=== PATIENT | female | born 1960 | race Hispanic/Latino ===

== ENCOUNTER 2017-08-21 10:45 | Inpatient (IN) | payer MEDICAID ==
[2017-08-21 10:46] VITALS: BMI 37.1
[2017-08-21] MEDS ORDERED: Sodium Chloride 0.9% 1,000 ML IV STA ×2 (12:12→17:52)
[2017-08-21 13:05] LABS: BASO % 0.3 % (0.0-2.0); EOS # 0.1 K/uL (0.0-0.7); EOS % 0.7 % (0.0-4.0); HEMATOCRIT 39.3 % (34.0-47.0); LYMPH # 2.6 K/uL (1.0-4.3); LYMPH % 31.3 % (20.0-40.0); MEAN CELL VOLUME 86.8 fl (81.0-99.0); MEAN CORPUSCULAR HEMOGLOBIN 28.9 pg (27.0-31.0); MEAN CORPUSCULAR HGB CONC 33.3 g/dL (33.0-37.0); MEAN PLATELET VOLUME 5.8 fl (7.2-11.7); MONO # 0.6 K/uL (0.0-0.8); MONO % 7.3 % (0.0-10.0); NEUT # 5.1 K/uL (1.8-7.0); NEUT % 60.4 % (50.0-75.0); NRBC % 0.1 % (0.0-0.0); RED CELL DISTRIBUTION WIDTH 13.8 % (11.5-14.5); WHITE BLOOD COUNT 8.4 K/uL (4.8-10.8)
[2017-08-21 13:16] LABS: ALB/GLOB RATIO 1.3 (1.0-2.1); ALKALINE PHOSPHATASE 71 U/L (38-126); ALT/SGPT 41 U/L (9-52); AST/SGOT 18 U/L (14-36); BILIRUBIN,TOTAL 0.5 mg/dl (0.2-1.3); BLOOD UREA NITROGEN 9 mg/dl (7-17); CALCIUM 8.8 mg/dL (8.4-10.2); CARBON DIOXIDE 28 mmol/L (22-30); CHLORIDE 108 mmol/L (98-107); GFR AFRICAN-AMERICAN > 60; GLUCOSE,RANDOM 137 mg/dL (65-105); LIPASE 85 U/L (23-300); SODIUM 142 mmol/l (132-148); TOTAL PROTEIN 6.7 G/DL (6.3-8.2)
[2017-08-21] MEDS ORDERED: Morphine 4 MG/ML VIAL IVP ONE ×2 (14:08→18:47)
[2017-08-21] MEDS ORDERED: Morphine 4 MG/ML VIAL ONE ×2 (14:11→19:10)
--- NOTE | 2017-08-21 14:11 | US ---
HISTORY: RUQ pain. hx of maurisio COMPARISON: None available TECHNIQUE: Sonographic evaluation of the right upper quadrant of the abdomen. FINDINGS: LIVER: Measures measures approximately 16.8 cm and appears unremarkable. No focal hepatic mass identified. The main portal vein appears patent with normal directional flow. No mass. No intrahepatic bile duct dilatation. GALLBLADDER: Cholecystectomy. COMMON BILE DUCT: Measures 8 mm. PANCREAS: Not well-visualized. RIGHT KIDNEY: Measures 11.7 x 6.3 x 4.6 cm. No obstructing calculus or hydronephrosis identified. AORTA: Limited visualization appears grossly unremarkable. IVC: Limited visualization appears grossly unremarkable. OTHER FINDINGS: None . IMPRESSION: Mildly dilated common bile duct in the setting of cholecystectomy.
[2017-08-21] MEDS ORDERED: Iohexol 240 (50 ml) PO ONE (14:18)
[2017-08-21] MEDS ORDERED: Iohexol 240 (50 ml) ONE (14:26)
--- NOTE | 2017-08-21 14:55 | ED PDOC ---
HPI: Abdomen Time Seen by Provider: 08/21/17 11:08 Chief Complaint (Nursing): Abdominal Pain Chief Complaint (Provider): Abdominal Pain History Per: Patient History/Exam Limitations: no limitations Onset/Duration Of Symptoms: Days (x3 days) Additional Complaint(s): 57 y/o female with a past medical history of gastroparesis and diabete presents to the Ed complaining of right upper quadrant pain x 3 days. She has nausea and vomiting associated with pain. Pain is constant and exacerbated by deep breaths and eating. Patient also complained of diarrhea since this morning. No medications were taken for pain. Past Medical History Reviewed: Historical Data, Nursing Documentation, Vital Signs Vital Signs: Last Vital Signs Temp 98 F 08/21/17 11:00 Pulse 66 08/21/17 18:17 Resp 18 08/21/17 11:00 BP 135/78 08/21/17 11:00 Pulse Ox 98 08/21/17 18:17 - Medical History PMH: Diabetes, Gastritis, Gall Bladder Disease (Post cholecystectomy ), HTN, Hypercholesterolemia, TIA Denies: Chronic Kidney Disease - Surgical History Surgical History: Appendectomy, Cholecystectomy, Endoscopy, Tonsillectomy - Family History Family History: States: Unknown Family Hx - Social History Current smoker - smoking cessation education provided: No Alcohol: None Drugs: Denies - Immunization History Hx Tetanus Toxoid Vaccination: No Hx Influenza Vaccination: No Hx Pneumococcal Vaccination: No - Home Medications Home Medications: Ambulatory Orders Medication Instructions Recorded Aspirin [Aspirin EC] 81 mg PO DAILY 03/19/15 Insulin Detemir [Levemir] 50 unit SC HS 03/19/15 Isosorbide Mononitrate ER [Imdur 30 mg PO DAILY 09/05/16 ER] [place]-3 Fatty Acids [Fish Oil] 500 mg PO DAILY 09/05/16 Carvedilol [Coreg] 3.125 mg PO Q12 tab 09/06/16 Insulin Lispro [Humalog (Insulin 3 unit SQ ACTID #1 cartridge 09/06/16 Lispro)] Losartan [Cozaar] 25 mg PO DAILY tab 09/06/16 ALPRAZolam [Xanax] 1 mg PO BID PRN 08/21/17 Metoclopramide [Reglan] 10 mg PO BID PRN 08/21/17 - Allergies Allergies/Adverse Reactions: Allergies Allergy/AdvReac Type Severity Reaction Status Date / Time Penicillins Allergy RASH Verified 08/30/16 10:02 Review of Systems ROS Statement: Except As Marked, All Systems Reviewed And Found Negative (As per HPI, othewise negative) Constitutional: Negative for: Fever Gastrointestinal: Positive for: Nausea, Vomiting (non bloody), Abdominal Pain ( Right upper quadrant pain) Genitourinary Female: Negative for: Other (bloody stool) Physical Exam - Reviewed Nursing Documentation Reviewed: Yes Vital Signs Reviewed: Yes - Physical Exam Appears: Positive for: Non-toxic, Uncomfortable Head Exam: Positive for: ATRAUMATIC, NORMOCEPHALIC Skin: Positive for: Normal Color, Warm, Dry Eye Exam: Positive for: Normal appearance, EOMI, PERRL Neck: Positive for: Normal, Painless ROM, Supple Cardiovascular/Chest: Positive for: Regular Rate, Rhythm. Negative for: Murmur Respiratory: Positive for: Normal Breath Sounds. Negative for: Respiratory Distress Gastrointestinal/Abdominal: Positive for: Tenderness (right upper quadrant tenderness) Back: Positive for: Normal Inspection. Negative for: L CVA Tenderness, R CVA Tenderness, Vertebral Tenderness Extremity: Positive for: Normal ROM. Negative for: Pedal Edema, Deformity Neurologic/Psych: Positive for: Alert, Oriented (x3) - Laboratory Results Result Diagrams: 08/21/17 12:53 08/21/17 12:53 - ECG ECG Rhythm: Positive for: Sinus Rhythm (Normal). Negative for: ST/T Changes Rate: 66 O2 Sat by Pulse Oximetry: 98 (RA) Pulse Ox Interpretation: Normal Medical Decision Making Medical Decision Making: Time: 12:11 Initial Impression: Abdominal pain Differential diagnosis: Acute pancreatitis, cholelithiasis, small bowel obstruction, exacerbation of gastroparesis Plan: EKG Hydromorphone 0.5mg IVP Sodium chloride 1L IV Reglan 10mg sodium chloride 0.9% 50ml IVPB Ultrasound abdomen Time: 12:53 CMP Lipase Troponin I CBC w/ diff Time: 14:08 Iohexol 50ml PO Ondansetron 4mg IV Morphine 4mg IVP Time: 14:09 Abdomen US FINDINGS: LIVER: Measures measures approximately 16.8 cm and appears unremarkable. No focal hepatic mass identified. The main portal vein appears patent with normal directional flow. No mass. No intrahepatic bile duct dilatation. GALLBLADDER: Cholecystectomy. COMMON BILE DUCT: Measures 8 mm. PANCREAS: Not well-visualized. RIGHT KIDNEY: Measures 11.7 x 6.3 x 4.6 cm. No obstructing calculus or hydronephrosis identified. AORTA: Limited visualization appears grossly unremarkable. IVC: Limited visualization appears grossly unremarkable. OTHER FINDINGS: None . IMPRESSION: Mildly dilated common bile duct in the setting of cholecystectomy. Time: 17:43 Abdomen/Pelvis CT FINDINGS: LOWER THORAX: No visible consolidation, pleural effusion, or pneumothorax. Small hiatal hernia. LIVER: Unremarkable. GALLBLADDER AND BILE DUCTS: Cholecystectomy. Question presence of calculi within the cystic duct remnant ( coronal image 56). PANCREAS: Unremarkable. SPLEEN: Unremarkable. ADRENALS: Unremarkable. KIDNEYS AND URETERS: The kidneys enhance symmetrically. No hydronephrosis or obstructing renal calculus. BLADDER: Under distended urinary bladder limits evaluation. REPRODUCTIVE: Heterogeneous lobulated uterus consistent with fibroids. APPENDIX: The appendix appears within normal limits of caliber. No secondary signs of acute appendicitis. BOWEL: The stomach is nondistended. The bowel loops appear within normal limits of caliber without evidence of intestinal obstruction. PERITONEUM: No significant free fluid. No definite free air. LYMPH NODES: Sub cm bilateral inguinal lymph nodes. No bulky lymphadenopathy identified. VASCULATURE: No aortic aneurysm. BONES: Degenerative changes. OTHER FINDINGS: Small fat containing umbilical hernia. IMPRESSION: Question presence of calculi within a cystic duct remnant. [address] Kay who is covering for Dr Meyer will the patient in ED and will discuss with attending Dr Meyer. Scribe Attestation: Documented by Socorro May acting as a scribe for Meg Arevalo MD. Scribe Attestation: All medical record entries made by the Scribe were at my direction and personally dictated by me. I have reviewed the chart and agree that the record accurately reflects my personal performance of the history, physical exam, medical decision making, and the department course for this patient. I have also personally directed, reviewed, and agree with the discharge instructions and disposition. Disposition - Clinical Impression Clinical Impression: Abdominal pain - Disposition Forms: [employer] (Belarusian)
[2017-08-21] MEDS ORDERED: Iohexol 300 100 ML IJ ONE (16:46)
[2017-08-21] MEDS ORDERED: Sodium Chloride 0.9% 50 ML IV ONE (16:46)
--- NOTE | 2017-08-21 17:44 | CT ---
PROCEDURE: CT Abdomen and Pelvis with oral and IV contrast. HISTORY: ruq pain hx of maurisio COMPARISON: Limited abdominal ultrasound performed 08/21/17 TECHNIQUE: Contiguous axial images of the abdomen and pelvis. Oral and IV contrast was administered. Coronal and Sagittal reformats generated and reviewed. Contrast dose: 95 mL Omnipaque 300 Radiation dose: Total exam DLP = 1139.42 mGy-cm. This CT exam was performed using one or more of the following dose reduction techniques: Automated exposure control, adjustment of the mA and/or kV according to patient size, and/or use of iterative reconstruction technique. FINDINGS: LOWER THORAX: No visible consolidation, pleural effusion, or pneumothorax. Small hiatal hernia. LIVER: Unremarkable. GALLBLADDER AND BILE DUCTS: Cholecystectomy. Question presence of calculi within the cystic duct remnant (coronal image 56). PANCREAS: Unremarkable. SPLEEN: Unremarkable. ADRENALS: Unremarkable. KIDNEYS AND URETERS: The kidneys enhance symmetrically. No hydronephrosis or obstructing renal calculus. BLADDER: Under distended urinary bladder limits evaluation. REPRODUCTIVE: Heterogeneous lobulated uterus consistent with fibroids. APPENDIX: The appendix appears within normal limits of caliber. No secondary signs of acute appendicitis. BOWEL: The stomach is nondistended. The bowel loops appear within normal limits of caliber without evidence of intestinal obstruction. PERITONEUM: No significant free fluid. No definite free air. LYMPH NODES: Sub cm bilateral inguinal lymph nodes. No bulky lymphadenopathy identified. VASCULATURE: No aortic aneurysm. BONES: Degenerative changes. OTHER FINDINGS: Small fat containing umbilical hernia. IMPRESSION: Question presence of calculi within a cystic duct remnant.
[2017-08-21] MEDS ORDERED: Ciprofloxacin 400mg/200ml D5W 400 MG/200 ML BAG IVPB STA (19:17)
[2017-08-21] MEDS ORDERED: metroNIDAZOLE 500mg/100ml NS 100 ML IVPB STA (19:17)
[2017-08-21] MEDS ORDERED: Ciprofloxacin 400mg/200ml D5W 400 MG/200 ML BAG IVPB ONE (19:29)
[2017-08-21] MEDS ORDERED: metroNIDAZOLE 500mg/100ml NS 100 ML IVPB ONE (19:29)
--- NOTE | 2017-08-21 19:29 | CP.PCM.CON ---
History of Present Illness - History of Present Illness History of Present Illness: General Surgery Consult Note for Dr. Meyer Reason for Consult: abdominal pain, possible cystic duct remnant stone 57 F with PMH of gastroparesis, DM, HTN, s/p cholecystectomy (1998) presents to [facility] ED with complaint of right upper quadrant pain. Patient states that she has had pain for about 4 weeks. She states that it has gotten progressively worse. She has history of gastroparesis and it felt similar so she attributed the pain to that. Patient admits to associated nausea/vomting. She rates pain as severe. She describes the pain as constant and sharp located in RUQ and epigastric region. She states it is exacerbated by deep breaths and eating but denies alleviating factors. CT scan and abdominla US was done in ED which showed possible cystic duct remnant and dilated CBD, respectively. Admits to diarrhea. Denies fever/chills, cp, sob, palpitations, constipation, incontinence. PMH: DM, Gastritis, s/p cholecystectomy, gastroparesis, HTN, Hypercholesterolemia, TIA Meds: As per EMR Allergy: NKDA PSH : Appendectomy, Cholecystectomy, Endoscopy, Tonsillectomy FH: unknown Social: denies tobacco/EtOH/illicit drug use Review of Systems - Review of Systems All systems: reviewed and no additional remarkable complaints except (abdominal pain, nausea/vomiting, diarrhea) Past Patient History - Past Medical History & Family History Past Medical History?: Yes - Past Social History Alcohol: None Drugs: Denies - CARDIAC Hx Hypercholesterolemia: Yes Hx Hypertension: Yes - PULMONARY Hx Respiratory Disorders: No - NEUROLOGICAL Hx Transient Ischemic Attacks (TIA): Yes - HEENT Hx HEENT Problems: No - RENAL Hx Chronic Kidney Disease: No - ENDOCRINE/METABOLIC Hx Endocrine Disorders: Yes Hx Diabetes Mellitus Type 2: Yes - HEMATOLOGICAL/ONCOLOGICAL Hx Blood Disorders: No - INTEGUMENTARY Hx Dermatological Problems: No - MUSCULOSKELETAL/RHEUMATOLOGICAL Hx Musculoskeletal Disorders: No Hx Falls: No - GASTROINTESTINAL Hx Gall Bladder Disease: Yes (Post cholecystectomy ) Hx Gastritis: Yes - GENITOURINARY/GYNECOLOGICAL Hx Genitourinary Disorders: No - PSYCHIATRIC Hx Psychophysiologic Disorder: No Hx Substance Use: No - SURGICAL HISTORY Hx Appendectomy: Yes Hx Cholecystectomy: Yes Hx Tonsillectomy: Yes - ANESTHESIA Hx Anesthesia: Yes Hx Anesthesia Reactions: No Hx Malignant Hyperthermia: No Meds Allergies/Adverse Reactions: Allergies Allergy/AdvReac Type Severity Reaction Status Date / Time Penicillins Allergy RASH Verified 08/30/16 10:02 - Medications Medications: Current Medications Ciprofloxacin (Cipro 400mg/200ml Dsw) 400 mg in 200 mls @ 200 mls/hr IVPB STAT STA PRN Reason: Protocol Stop: 08/21/17 20:16 Metronidazole (Flagyl 500mg/100ml Ns) 100 mls @ 100 mls/hr IVPB STAT STA PRN Reason: Protocol Stop: 08/21/17 20:16 Physical Exam - Constitutional Appears: No Acute Distress, Other (anxious) - Head Exam Head Exam: ATRAUMATIC, NORMOCEPHALIC - Eye Exam Eye Exam: EOMI, Normal appearance, PERRL. absent: Scleral icterus - ENT Exam ENT Exam: Mucous Membranes Moist - Neck Exam Neck exam: Positive for: Full Rom - Respiratory Exam Respiratory Exam: NORMAL BREATHING PATTERN - Cardiovascular Exam Cardiovascular Exam: REGULAR RHYTHM - GI/Abdominal Exam GI & Abdominal Exam: Distended, Normal Bowel Sounds, Soft, Tenderness (RUQ/ epigastrium). absent: Firm, Guarding, Hernia, Pulsatile Mass, Rebound, Rigid - Extremities Exam Extremities exam: Positive for: normal capillary refill, pedal pulses present - Back Exam Back exam: absent: CVA tenderness (L), CVA tenderness (R) - Neurological Exam Neurological exam: Alert, CN II-XII Intact, Oriented x3 - Psychiatric Exam Psychiatric exam: Anxious - Skin Skin Exam: Dry, Intact, Normal Color, Warm Results - Vital Signs Recent Vital Signs: Last Vital Signs Temp 98 F 08/21/17 11:00 Pulse 66 08/21/17 18:24 Resp 18 08/21/17 11:00 BP 135/78 08/21/17 11:00 Pulse Ox 98 08/21/17 18:24 - Labs Result Diagrams: 08/21/17 12:53 08/21/17 12:53 Labs: Laboratory Results - last 24 hr 08/21/17 08/21/17 12:53 12:53 WBC 8.4 RBC 4.53 Hgb 13.1 Hct 39.3 MCV 86.8 MCH 28.9 MCHC 33.3 RDW 13.8 Plt Count 231 MPV 5.8 L Neut % (Auto) 60.4 Lymph % (Auto) 31.3 [place] % (Auto) 7.3 Eos % (Auto) 0.7 Baso % (Auto) 0.3 Neut # 5.1 Lymph # 2.6 [place] # 0.6 Eos # 0.1 Baso # 0.0 Sodium 142 Potassium 4.0 Chloride 108 H Carbon Dioxide 28 Anion Gap 10 BUN 9 Creatinine 0.5 L Est GFR ( Amer) > 60 Est GFR (Non-Af Amer) > 60 Random Glucose 137 H Calcium 8.8 Total Bilirubin 0.5 AST 18 ALT 41 Alkaline Phosphatase 71 Troponin I < 0.0120 Total Protein 6.7 Albumin 3.8 Globulin 2.9 Albumin/Globulin Ratio 1.3 Lipase 85 Assessment & Plan - Assessment and Plan (Free Text) Plan: 57 F with abdominal pain and imaging findings of dilated CBD and cystic duct remnant stone -NPO -IVC fluids -Analgesics/Anti-emetics -F/u GI recommendations -Will Discuss with Dr. Mitch Hightower PGY1
[2017-08-21] MEDS ORDERED: HYDROmorphone 0.5 mg/0.5 ml ISec IVP PRN (23:13)
[2017-08-21] MEDS ORDERED: Insulin Detemir 100 Units/ml Inj SC SCH (23:45)
[2017-08-22] MEDS: HYDROmorphone 0.5 mg/0.5 ml ISec IVP PRN ×2 (00:06→08:09)
[2017-08-22] MEDS ORDERED: Dextrose 5%/0.9% NS 1,000 ML IV SCH ×2 (00:30→08:55)
[2017-08-22 06:48] LABS: PARTIAL THROMBOPLASTIN TIME 30.8 Seconds (25.6-37.1)
[2017-08-22 07:06] LABS: BASO % 0.3 % (0.0-2.0); EOS # 0.1 K/uL (0.0-0.7); HEMATOCRIT 36.2 % (34.0-47.0); LYMPH # 2.7 K/uL (1.0-4.3); LYMPH % 37.4 % (20.0-40.0); MEAN CELL VOLUME 87.2 fl (81.0-99.0); MEAN CORPUSCULAR HEMOGLOBIN 28.8 pg (27.0-31.0); MEAN CORPUSCULAR HGB CONC 33.1 g/dL (33.0-37.0); MEAN PLATELET VOLUME 6.1 fl (7.2-11.7); MONO # 0.5 K/uL (0.0-0.8); MONO % 7.6 % (0.0-10.0); NEUT # 3.9 K/uL (1.8-7.0); NEUT % 53.7 % (50.0-75.0); NRBC % 0.2 % (0.0-0.0); RED CELL DISTRIBUTION WIDTH 13.7 % (11.5-14.5); WHITE BLOOD COUNT 7.2 K/uL (4.8-10.8)
[2017-08-22 07:27] LABS: ALB/GLOB RATIO 1.2 (1.0-2.1); ALKALINE PHOSPHATASE 54 U/L (38-126); ALT/SGPT 32 U/L (9-52); AST/SGOT 20 U/L (14-36); BILIRUBIN,TOTAL 0.2 mg/dl (0.2-1.3); BLOOD UREA NITROGEN 7 mg/dl (7-17); CALCIUM 8.3 mg/dL (8.4-10.2); CARBON DIOXIDE 29 mmol/L (22-30); CHLORIDE 110 mmol/L (98-107); GFR AFRICAN-AMERICAN > 60; GLUCOSE,RANDOM 118 mg/dL (65-105); POTASSIUM 3.7 MMOL/L (3.6-5.0); SODIUM 142 mmol/l (132-148); TOTAL PROTEIN 5.8 G/DL (6.3-8.2)
[2017-08-22] MEDS: Insulin Lispro (humaLOG) 100 Units/ml Inj SC SCH ×2 (07:30→11:30)
--- NOTE | 2017-08-22 08:02 | CARD ---
APPROVED REPORT EKG Measurement Heart [id number] <Conclusion> Normal sinus rhythm Normal ECG
[2017-08-22] MEDS ORDERED: Gadodiamide 287 MG/ML VIAL (15ML) IV ONE (08:26)
[2017-08-22] MEDS ORDERED: Sodium Chloride 0.9% 50 ML IV ONE (08:26)
--- NOTE | 2017-08-22 10:48 | CP.PCM.PN ---
Subjective - Date & Time of Evaluation Date of Evaluation: 08/22/17 Time of Evaluation: 09:45 - Subjective Subjective: General Surgery Dr. Meyer Pt down at MRI for MRCP. Will evaluate later today. Pt S&E @bedside. NAEO. Pt c/o constant RUQ pain, N/V. Pt reports worse RUQ pain w/ deep inhalation. Pt also reports occasional, cramping pain in epigastric region that resolves spontaneously. Pt is NPO. Objective - Vital Signs/Intake and Output Vital Signs (last 24 hours): Temp Pulse Resp BP Pulse Ox 97.7 F 61 20 101/62 98 08/22/17 09:08 08/22/17 09:08 08/22/17 09:08 08/22/17 09:08 08/22/17 09:08 - Medications Medications: Current Medications Alprazolam (Xanax) 1 mg PO BID PRN PRN Reason: Anxiety Aspirin (Ecotrin) 81 mg PO DAILY [facility] Carvedilol (Coreg) 3.125 mg PO Q12 [facility] Enoxaparin Sodium (Lovenox) 40 mg SC DAILY [facility] PRN Reason: Protocol Stop: 08/24/17 23:00 Hydromorphone HCl (Dilaudid) 1 mg IVP Q4 PRN PRN Reason: Pain, severe (8-10) Last Admin: 08/22/17 08:09 Dose: 1 mg Hydromorphone HCl (Dilaudid) 0.5 mg IVP Q4 PRN PRN Reason: Pain, moderate (4-7) Dextrose/Sodium Chloride (Dextrose 5%/0.9% Ns 1000 Ml) 1,000 mls @ 120 mls/hr IV .[id number] [facility] Insulin Detemir (Levemir) 30 units SC HS [facility] Last Admin: 08/22/17 00:27 Dose: 30 u Insulin Human Lispro (Humalog) 0 units SC ACHS [facility] PRN Reason: Protocol Last Admin: 08/22/17 07:30 Dose: Not Given Isosorbide Mononitrate (Imdur Er) 30 mg PO DAILY [facility] Ketorolac Tromethamine (Toradol) 15 mg IVP Q6 PRN PRN Reason: Pain, Mild (1-3) Losartan Potassium (Cozaar) 25 mg PO DAILY [facility] Ondansetron HCl (Zofran Inj) 4 mg IVP Q4 PRN PRN Reason: Nausea/Vomiting Last Admin: 08/22/17 08:52 Dose: 4 mg - Labs Labs: 08/22/17 05:20 08/22/17 05:20 PT 12.6 Seconds (9.8-13.1) 08/22/17 05:20 INR 1.1 (0.9-1.2) 08/22/17 05:20 APTT 30.8 Seconds (25.6-37.1) 08/22/17 05:20 - Constitutional Appears: Non-toxic, No Acute Distress - Head Exam Head Exam: NORMAL INSPECTION - Eye Exam Eye Exam: Normal appearance - ENT Exam ENT Exam: Mucous Membranes Moist - Respiratory Exam Respiratory Exam: NORMAL BREATHING PATTERN. absent: Accessory Muscle Use, Respiratory Distress - Cardiovascular Exam Cardiovascular Exam: absent: Bradycardia, Tachycardia - GI/Abdominal Exam GI & Abdominal Exam: Soft, Tenderness (TTP RUQ). absent: Distended, Firm, Guarding, Rebound - Extremities Exam Extremities Exam: Normal Inspection - Neurological Exam Neurological Exam: Alert, Awake, Oriented x3 - Psychiatric Exam Psychiatric exam: Normal Affect, Normal Mood - Skin Skin Exam: Dry, Intact, Normal Color, Warm Assessment and Plan - Assessment and Plan (Free Text) Assessment: 57 y/o F w/ RUQ pain - MRCP inconclusive for cystic duct stone - spoke to GI, not recommending ERCP at this time - cont pain management - consider pleuritic chest pain and possible CTA - f/u GI recs - cont medical management - no surgical intervention at this time Pt discussed w/ Dr. Mitch Calix DO PGY2
[2017-08-22] MEDS ORDERED: Ciprofloxacin 400mg/200ml D5W 400 MG/200 ML BAG IVPB SCH (11:45)
--- NOTE | 2017-08-22 13:08 | MRI ---
MRI abdomen without/with IV contrast MRCP Indication: Retained stone Technique: Multiplanar, multi sequence magnetic resonance images of the abdomen were obtained without and with the administration of intravenous gadolinium using a multi phase abdomen protocol. Rotating maximum intensity projection images of the biliary system were generated. A total of 1167 images submitted for review Comparison: Limited abdominal ultrasound performed 08/21/17, CT abdomen pelvis with contrast performed 08/21/17 Findings: Cholecystectomy. Again question presence of calculi within a cystic duct remnant. There is no intrahepatic biliary ductal dilatation. The common bile duct appears dilated measuring approximately 10 mm without focal filling defect evident. The pancreatic duct appears within normal limits of caliber. No filling defects are seen in the common bile duct or pancreatic duct. The liver, spleen, pancreas, and adrenal glands appear unremarkable. The kidneys enhance symmetrically. No obstructing calculus or hydronephrosis identified. No no bulky adenopathy identified. Limited views of the inferior thorax appear unremarkable. Small hiatal hernia. Impression: Dilated common bile duct in the setting of cholecystectomy. Again question presence of calculi within a cystic duct remnant. No filling defects evident within the common bile duct.
[2017-08-22] MEDS: metroNIDAZOLE 500mg/100ml NS 100 ML IVPB SCH ×2 (13:19→13:30)
[2017-08-22 16:33] VITALS: BP 101/59; PULSE 58; RESP 18; TEMP 97; O2SAT 95
[2017-08-22] MEDS ORDERED: Enoxaparin 40 mg Syringe SC SCH (17:00)
--- NOTE | 2017-08-22 19:49 | CP.PCM.CON ---
History of Present Illness - History of Present Illness History of Present Illness: 57 yo female with recent lap/maurisio admitted with RUQ pain radiating to back associated with nausea and vomiting.. No fever, chills, or diarrhea. Review of Systems - Constitutional Constitutional: absent: Chills - EENT Eyes: absent: Blurred Vision Ears: absent: Decreased Hearing Nose/Mouth/Throat: absent: Epistaxis - Cardiovascular Cardiovascular: absent: Chest Pain - Respiratory Respiratory: absent: Dyspnea - Gastrointestinal Gastrointestinal: As Per HPI - Genitourinary Genitourinary: absent: Change in Urinary Stream Past Patient History - Past Medical History & Family History Past Medical History?: Yes - Past Social History Alcohol: None Drugs: Denies - CARDIAC Hx Hypercholesterolemia: Yes Hx Hypertension: Yes - PULMONARY Hx Respiratory Disorders: No - NEUROLOGICAL Hx Transient Ischemic Attacks (TIA): Yes - HEENT Hx HEENT Problems: No - RENAL Hx Chronic Kidney Disease: No - ENDOCRINE/METABOLIC Hx Endocrine Disorders: Yes Hx Diabetes Mellitus Type 2: Yes - HEMATOLOGICAL/ONCOLOGICAL Hx Blood Disorders: No - INTEGUMENTARY Hx Dermatological Problems: No - MUSCULOSKELETAL/RHEUMATOLOGICAL Hx Musculoskeletal Disorders: No Hx Falls: No - GASTROINTESTINAL Hx Gall Bladder Disease: Yes (Post cholecystectomy ) Hx Gastritis: Yes - GENITOURINARY/GYNECOLOGICAL Hx Genitourinary Disorders: No - PSYCHIATRIC Hx Psychophysiologic Disorder: No Hx Substance Use: No - SURGICAL HISTORY Hx Appendectomy: Yes Hx Cholecystectomy: Yes Hx Tonsillectomy: Yes - ANESTHESIA Hx Anesthesia: Yes Hx Anesthesia Reactions: No Hx Malignant Hyperthermia: No Meds Allergies/Adverse Reactions: Allergies Allergy/AdvReac Type Severity Reaction Status Date / Time Penicillins Allergy RASH Verified 08/30/16 10:02 Physical Exam - Constitutional Appears: Well - Head Exam Head Exam: ATRAUMATIC - Eye Exam Eye Exam: Normal appearance Pupil Exam: NORMAL ACCOMODATION - ENT Exam ENT Exam: Mucous Membranes Moist - Neck Exam Neck exam: Positive for: Normal Inspection - Respiratory Exam Respiratory Exam: Clear to Auscultation Bilateral - Cardiovascular Exam Cardiovascular Exam: REGULAR RHYTHM, +S1, +S2 - GI/Abdominal Exam GI & Abdominal Exam: Normal Bowel Sounds, Soft, Tenderness Additional comments: RUQ tenderness, no guarding or rebound Results - Vital Signs Recent Vital Signs: Last Vital Signs Temp 97 F L 08/22/17 16:31 Pulse 58 L 11/29/17 16:31 Resp 18 08/22/17 16:31 BP 101/59 L 08/22/17 16:31 Pulse Ox 95 08/22/17 16:31 - Labs Result Diagrams: 08/22/17 05:20 08/22/17 05:20 Labs: Laboratory Results - last 24 hr 08/21/17 08/21/17 08/22/17 11:14 17:33 00:17 WBC RBC Hgb Hct MCV MCH MCHC RDW Plt Count MPV Neut % (Auto) Lymph % (Auto) Harris % (Auto) Eos % (Auto) Baso % (Auto) Neut # Lymph # Harris # Eos # Baso # PT INR APTT Sodium Potassium Chloride Carbon Dioxide Anion Gap BUN Creatinine Est GFR ( Amer) Est GFR (Non-Af Amer) POC Glucose (mg/dL) 185 H 135 H 163 H Random Glucose Hemoglobin A1c Calcium Total Bilirubin AST ALT Alkaline Phosphatase Total Protein Albumin Globulin Albumin/Globulin Ratio TSH 3rd Generation 08/22/17 08/22/17 08/22/17 05:20 05:20 05:20 WBC 7.2 RBC 4.15 Hgb 12.0 Hct 36.2 MCV 87.2 MCH 28.8 MCHC 33.1 RDW 13.7 Plt Count 207 MPV 6.1 L Neut % (Auto) 53.7 Lymph % (Auto) 37.4 Harris % (Auto) 7.6 Eos % (Auto) 1.0 Baso % (Auto) 0.3 Neut # 3.9 Lymph # 2.7 Harris # 0.5 Eos # 0.1 Baso # 0.0 PT 12.6 INR 1.1 APTT 30.8 Sodium 142 Potassium 3.7 Chloride 110 H Carbon Dioxide 29 Anion Gap 7 L BUN 7 Creatinine 0.6 L Est GFR ( Amer) > 60 Est GFR (Non-Af Amer) > 60 POC Glucose (mg/dL) Random Glucose 118 H Hemoglobin A1c Calcium 8.3 L Total Bilirubin 0.2 AST 20 ALT 32 Alkaline Phosphatase 54 Total Protein 5.8 L Albumin 3.2 L Globulin 2.6 Albumin/Globulin Ratio 1.2 TSH 3rd Generation 0.60 08/22/17 08/22/17 08/22/17 05:20 06:29 11:31 WBC RBC Hgb Hct MCV MCH MCHC RDW Plt Count MPV Neut % (Auto) Lymph % (Auto) Harris % (Auto) Eos % (Auto) Baso % (Auto) Neut # Lymph # Harris # Eos # Baso # PT INR APTT Sodium Potassium Chloride Carbon Dioxide Anion Gap BUN Creatinine Est GFR ( Amer) Est GFR (Non-Af Amer) POC Glucose (mg/dL) 115 H 120 H Random Glucose Hemoglobin A1c 8.8 H D Calcium Total Bilirubin AST ALT Alkaline Phosphatase Total Protein Albumin Globulin Albumin/Globulin Ratio TSH 3rd Generation 08/22/17 15:58 WBC RBC Hgb Hct MCV MCH MCHC RDW Plt Count MPV Neut % (Auto) Lymph % (Auto) Harris % (Auto) Eos % (Auto) Baso % (Auto) Neut # Lymph # Harris # Eos # Baso # PT INR APTT Sodium Potassium Chloride Carbon Dioxide Anion Gap BUN Creatinine Est GFR ( Amer) Est GFR (Non-Af Amer) POC Glucose (mg/dL) 101 Random Glucose Hemoglobin A1c Calcium Total Bilirubin AST ALT Alkaline Phosphatase Total Protein Albumin Globulin Albumin/Globulin Ratio [facility] 3rd Generation - Imaging and Cardiology MRI - abdomen Status: Report reviewed by me CT scan - abdomen Status: Report reviewed by me Assessment & Plan (1) Abdominal pain Assessment and Plan: Bile duct distention normal post surgery. No evidence of CBD stones or pathology. Suggestion on imaging of possible cystic duct stone. Should be managed by surgery. Status: Acute
[2017-08-22] MEDS ORDERED: Insulin Detemir 100 Units/ml Inj SC SCH (22:00)
--- NOTE | 2017-08-23 00:43 | CP.PCM.HP ---
Past Patient History - Past Medical History & Family History Past Medical History?: Yes - Past Social History Alcohol: None Drugs: Denies - CARDIAC Hx Hypercholesterolemia: Yes Hx Hypertension: Yes - PULMONARY Hx Respiratory Disorders: No - NEUROLOGICAL Hx Transient Ischemic Attacks (TIA): Yes - HEENT Hx HEENT Problems: No - RENAL Hx Chronic Kidney Disease: No - ENDOCRINE/METABOLIC Hx Endocrine Disorders: Yes Hx Diabetes Mellitus Type 2: Yes - HEMATOLOGICAL/ONCOLOGICAL Hx Blood Disorders: No - INTEGUMENTARY Hx Dermatological Problems: No - MUSCULOSKELETAL/RHEUMATOLOGICAL Hx Musculoskeletal Disorders: No Hx Falls: No - GASTROINTESTINAL Hx Gall Bladder Disease: Yes (Post cholecystectomy ) Hx Gastritis: Yes - GENITOURINARY/GYNECOLOGICAL Hx Genitourinary Disorders: No - PSYCHIATRIC Hx Psychophysiologic Disorder: No Hx Substance Use: No - SURGICAL HISTORY Hx Appendectomy: Yes Hx Cholecystectomy: Yes Hx Tonsillectomy: Yes - ANESTHESIA Hx Anesthesia: Yes Hx Anesthesia Reactions: No Hx Malignant Hyperthermia: No Meds Allergies/Adverse Reactions: Allergies Allergy/AdvReac Type Severity Reaction Status Date / Time Penicillins Allergy RASH Verified 08/30/16 10:02 Results - Vital Signs Recent Vital Signs: Last Vital Signs Temp 97 F L 08/22/17 16:31 Pulse 58 L 08/22/17 16:31 Resp 18 08/22/17 16:31 BP 101/59 L 08/22/17 16:31 Pulse Ox 95 08/22/17 16:31 - Labs Result Diagrams: 08/22/17 05:20 08/22/17 05:20 Labs: Laboratory Results - last 24 hr 08/22/17 08/22/17 08/22/17 05:20 05:20 05:20 WBC 7.2 RBC 4.15 Hgb 12.0 Hct 36.2 MCV 87.2 MCH 28.8 MCHC 33.1 RDW 13.7 Plt Count 207 MPV 6.1 L Neut % (Auto) 53.7 Lymph % (Auto) 37.4 Towns % (Auto) 7.6 Eos % (Auto) 1.0 Baso % (Auto) 0.3 Neut # 3.9 Lymph # 2.7 Towns # 0.5 Eos # 0.1 Baso # 0.0 PT 12.6 INR 1.1 APTT 30.8 Sodium 142 Potassium 3.7 Chloride 110 H Carbon Dioxide 29 Anion Gap 7 L BUN 7 Creatinine 0.6 L Est GFR ( Amer) > 60 Est GFR (Non-Af Amer) > 60 POC Glucose (mg/dL) Random Glucose 118 H Hemoglobin A1c Calcium 8.3 L Total Bilirubin 0.2 AST 20 ALT 32 Alkaline Phosphatase 54 Total Protein 5.8 L Albumin 3.2 L Globulin 2.6 Albumin/Globulin Ratio 1.2 TSH 3rd Generation 0.60 08/22/17 08/22/17 08/22/17 05:20 06:29 11:31 WBC RBC Hgb Hct MCV MCH MCHC RDW Plt Count MPV Neut % (Auto) Lymph % (Auto) Towns % (Auto) Eos % (Auto) Baso % (Auto) Neut # Lymph # Towns # Eos # Baso # PT INR APTT Sodium Potassium Chloride Carbon Dioxide Anion Gap BUN Creatinine Est GFR ( Amer) Est GFR (Non-Af Amer) POC Glucose (mg/dL) 115 H 120 H Random Glucose Hemoglobin A1c 8.8 H D Calcium Total Bilirubin AST ALT Alkaline Phosphatase Total Protein Albumin Globulin Albumin/Globulin Ratio TSH 3rd Generation 08/22/17 15:58 WBC RBC Hgb Hct MCV MCH MCHC RDW Plt Count MPV Neut % (Auto) Lymph % (Auto) Towns % (Auto) Eos % (Auto) Baso % (Auto) Neut # Lymph # Towns # Eos # Baso # PT INR APTT Sodium Potassium Chloride Carbon Dioxide Anion Gap BUN Creatinine Est GFR ( Amer) Est GFR (Non-Af Amer) POC Glucose (mg/dL) 101 Random Glucose Hemoglobin A1c Calcium Total Bilirubin AST ALT Alkaline Phosphatase Total Protein Albumin Globulin Albumin/Globulin Ratio TSH 3rd Generation
[2017-08-23] MEDS ORDERED: Enoxaparin 40 mg Syringe SC SCH (09:00)
== END 2017-08-22 17:08 | disposition left against medical advice (07) | DRG 813 ==
LOC: H.ER 10:45 → H.ERHOLD 19:15 → H.MEDSURG1 21:21
PROVIDERS: ADMIT Internal Medicine; ATTEND Internal Medicine
DX: R10.11 Right upper quadrant pain (principal); E11.43 Type 2 diabetes mellitus with diabetic autonomic (poly)neuropathy; K31.84 Gastroparesis; K83.8 Other specified diseases of biliary tract; I10 Essential (primary) hypertension; E78.00 Pure hypercholesterolemia, unspecified; Z86.73 Personal history of transient ischemic attack (TIA), and cerebral infarction without residual deficits; Z79.82 Long term (current) use of aspirin; Z79.899 Other long term (current) drug therapy; Z90.49 Acquired absence of other specified parts of digestive tract

== ENCOUNTER 2018-05-30 15:39 | Observation (INO) | payer MEDICAID ==
[2018-05-30 15:39] VITALS: BMI 37.1
--- NOTE | 2018-05-30 16:30 | RAD ---
HISTORY: sob COMPARISON: Chest x-ray performed 09/05/16 TECHNIQUE: Chest, one view. FINDINGS: Examination limited by habitus. LUNGS: No focal consolidation. Please note that chest x-ray has limited sensitivity for the detection of pulmonary masses. PLEURA: No significant pleural effusion identified. No definite pneumothorax . CARDIOVASCULAR: Heart size appears within normal limits. OSSEOUS STRUCTURES: No acute osseous abnormality identified. VISUALIZED UPPER ABDOMEN: Unremarkable. OTHER FINDINGS: None. IMPRESSION: No focal consolidation, significant pleural effusion, or definite pneumothorax identified.
[2018-05-30 16:43] LABS: BASO % 0.5 % (0.0-2.0); EOS # 0.1 K/uL (0.0-0.7); EOS % 1.2 % (0.0-4.0); HEMOGLOBIN 13.6 g/dL (12.0-16.0); LYMPH # 3.1 K/uL (1.0-4.3); LYMPH % 38.2 % (20.0-40.0); MEAN CORPUSCULAR HEMOGLOBIN 28.2 pg (27.0-31.0); MEAN CORPUSCULAR HGB CONC 33.2 g/dL (33.0-37.0); MEAN PLATELET VOLUME 6.4 fl (7.2-11.7); MONO # 0.5 K/uL (0.0-0.8); MONO % 6.6 % (0.0-10.0); NEUT # 4.4 K/uL (1.8-7.0); NEUT % 53.5 % (50.0-75.0); NRBC % 0.1 % (0.0-0.0); RBC 4.8 Mil/uL (3.80-5.20); RED CELL DISTRIBUTION WIDTH 12.9 % (11.5-14.5); WHITE BLOOD COUNT 8.2 K/uL (4.8-10.8)
[2018-05-30 16:45] LABS: PROTHROMBIN TIME 11.1 Seconds (9.8-13.1)
[2018-05-30 16:48] LABS: PARTIAL THROMBOPLASTIN TIME 30.4 Seconds (25.6-37.1)
[2018-05-30 17:03] LABS: ALB/GLOB RATIO 1.4 (1.0-2.1); ALT/SGPT 22 U/L (9-52); AST/SGOT 24 U/L (14-36); BLOOD UREA NITROGEN 17 mg/dl (7-17); CALCIUM 9.4 mg/dL (8.4-10.2); GFR NON-AFRICAN AMERICAN > 60
--- NOTE | 2018-05-30 17:05 | ED PDOC ---
HPI: Chest Pain Time Seen by Provider: 05/30/18 15:56 Chief Complaint (Nursing): Chest Pain Chief Complaint (Provider): Chest pressure History Per: Patient History/Exam Limitations: no limitations Onset/Duration Of Symptoms: Days Current Symptoms Are (Timing): Still Present Quality: Pressure Associated Symptoms: denies: Nausea, Diaphoresis, Syncope Additional Complaint(s): 58yo female, history of hypertension, TIA, minor [place], comes to ER for evaluation of chest pressure and shortness of breath. Patient states for the past 1 week, she has had discomfort in chest described as a pressure like sensation. She also reports increasing shortness of breath, especially with exertion and states she has decreased exercise tolerance of normal activity including walking up the stairs. Patient reports she has chronic lower extremity swelling which has been worsening over the past 2 weeks, right > left. She also reports lightheadedness, generalized fatigue and weakness. Patient denies any fever or cough. No other complaints. PMD: Dr. Mitchell Past Medical History Reviewed: Historical Data, Nursing Documentation, Vital Signs Vital Signs: Last Vital Signs Temp 98.2 F 05/31/18 14:04 Pulse 78 05/31/18 14:04 Resp 18 05/31/18 14:04 BP 116/69 05/31/18 14:04 Pulse Ox 98 05/31/18 14:04 - Medical History PMH: Diabetes, Gastritis, Gall Bladder Disease (Post cholecystectomy ), HTN, Hypercholesterolemia, TIA Denies: Chronic Kidney Disease - Surgical History Surgical History: Appendectomy, Cholecystectomy, Endoscopy, Tonsillectomy - Family History Family History: States: [place], Hypertension, Other Other Family History: DVT, pulmonary embolism - Social History Current smoker - smoking cessation education provided: No Alcohol: None Drugs: Denies - Immunization History Hx Tetanus Toxoid Vaccination: No Hx Influenza Vaccination: No Hx Pneumococcal Vaccination: No - Home Medications Home Medications: Ambulatory Orders Medication Instructions Recorded Aspirin [Aspirin EC] 81 mg PO DAILY 03/19/15 Insulin Detemir [Levemir] 50 unit SC HS 03/19/15 Isosorbide Mononitrate ER [Imdur 30 mg PO DAILY 09/05/16 ER] Carvedilol [Coreg] 3.125 mg PO Q12 tab 09/06/16 Insulin Lispro [Humalog (Insulin 3 unit SQ ACTID #1 cartridge 12/14/16 Lispro)] Losartan [Cozaar] 25 mg PO DAILY tab 09/06/16 ALPRAZolam [Xanax] 1 mg PO BID PRN 08/21/17 Metoclopramide [Reglan] 10 mg PO BID PRN 08/21/17 Pantoprazole [Protonix EC Tab] 40 mg PO DAILY #30 ect 05/31/18 - Allergies Allergies/Adverse Reactions: Allergies Allergy/AdvReac Type Severity Reaction Status Date / Time Penicillins Allergy RASH Verified 08/30/16 10:02 Review of Systems ROS Statement: Except As Marked, All Systems Reviewed And Found Negative Constitutional: Negative for: Fever, Chills Cardiovascular: Positive for: Other (chest pressure) Respiratory: Positive for: Shortness of Breath Musculoskeletal: Positive for: Other (leg swelling right > left) Physical Exam - Reviewed Nursing Documentation Reviewed: Yes Vital Signs Reviewed: Yes - Physical Exam Appears: Positive for: Non-toxic, No Acute Distress Head Exam: Positive for: ATRAUMATIC, NORMAL INSPECTION, NORMOCEPHALIC Skin: Positive for: Normal Color, Warm, DRY Eye Exam: Positive for: Normal appearance Neck: Positive for: Normal, Painless ROM Cardiovascular/Chest: Positive for: Regular Rate, Rhythm Respiratory: Positive for: Normal Breath Sounds. Negative for: Respiratory Distress Back: Positive for: Normal Inspection Extremity: Positive for: Normal ROM (FROM bilateral lower extremities), Pedal Edema (doughy pedal edema bilaterally, right > left), Calf Tenderness (mild right calf tenderness) Neurologic/Psych: Positive for: Alert, Oriented - Laboratory Results Result Diagrams: 05/30/18 16:36 05/30/18 16:36 - ECG O2 Sat by Pulse Oximetry: 97 (RA) Pulse Ox Interpretation: Normal Medical Decision Making Medical Decision Making: Impression: Chest pressure, shortness of breath Differential: Pulmonary embolism, CHF, ACS, electrolyte abnormality, renal insufficiency, renal failure, anxiety Plan: * Labs * EKG * US Duplex lower extremity * CTA Chest Accession No. : [id number] Patient Name / ID : [id number] / [id number] Exam Date : 05/30/2018 18:03:10 ( Approved ) Study Comment : Sex / Age : F / 58Y Creator : Jimena Fernandes MD Dictator : Jimena Fernandes MD Turf Keeper : First Breaker Feeder : Jimena Fernandes MD Approver2 : Report Date : 05/30/2018 18:31:10 My Comment : Date of service: 05/30/2018 PROCEDURE: Bilateral lower extremity venous duplex Doppler. HISTORY: swelling legs COMPARISON: Left lower extremity ultrasound performed 07/08/14 TECHNIQUE: Bilateral common femoral, superficial femoral, popliteal and posterior tibial veins were evaluated. Flow was assessed with color Doppler, compressibility, assessment of phasic flow and augmentation response. FINDINGS: COMMON FEMORAL VEIN: Right CFV: Unremarkable. Left CFV: Unremarkable. SUPERFICIAL FEMORAL VEIN: Right SFV: Unremarkable. Left SFV: Unremarkable. POPLITEAL VEIN: Right Popliteal: Unremarkable. Left Popliteal: Unremarkable. POSTERIOR TIBIAL VEIN: Right PTV: Unremarkable. Left PTV: Unremarkable. OTHER FINDINGS: Soft tissue edema. IMPRESSION: No evidence of deep venous thrombosis. Soft tissue edema. Time: 2053 CTA Chest FINDINGS: Pulmonary arteries: No acute embolus in the main, lobar, segmental or subsegmental pulmonary arteries. Aorta: Limited opacification of the imaged aorta. No evident dissection or other acute abnormality of the imaged aorta. No thoracic aortic aneurysm. Lungs: No pulmonary airspace consolidation. The central airways are patent. Pleural space: No pleural fluid collection. No pneumothorax. Heart: No cardiomegaly. No pericardial fluid collection. Mediastinum: Small hiatal hernia. Bones/joints: Mild multilevel degenerative changes of the imaged spine. Soft tissues: No acute findings. Lymph nodes: No enlarged thoracic lymph nodes by CT criteria. Gallbladder and bile ducts: Status post cholecystectomy. IMPRESSION: 1. No pulmonary embolus or other evident acute abnormality. 2. Non-acute findings as described above. Labs unremarkable. pt with persistent chest pain. Will observe for serial enzymes for ACS or unstable angina. Scribe Attestation: Documented by Maggi Donahue, acting as a scribe for Amelia Newberry MD Provider Scribe Attestation: All medical record entries made by the Scribe were at my direction and personally dictated by me. I have reviewed the chart and agree that the record accurately reflects my personal performance of the history, physical exam, medical decision making, and the department course for this patient. I have also personally directed, reviewed, and agree with the discharge instructions and disposition. Disposition - Clinical Impression Clinical Impression: Chest pain Counseled Patient/Family Regarding: Studies Performed, Diagnosis - Disposition Disposition Time: 22:00 Condition: FAIR - Pt Status Changed To: Hospital Disposition Of: Observation - POA Present On Arrival: None
[2018-05-30 17:13] LABS: B-TYPE NATRIURETIC PEPTIDE 80.4 pg/ml (0-900)
--- NOTE | 2018-05-30 18:32 | US ---
Date of service: 05/30/2018 PROCEDURE: Bilateral lower extremity venous duplex Doppler. HISTORY: swelling legs COMPARISON: Left lower extremity ultrasound performed 07/08/14 TECHNIQUE: Bilateral common femoral, superficial femoral, popliteal and posterior tibial veins were evaluated. Flow was assessed with color Doppler, compressibility, assessment of phasic flow and augmentation response. FINDINGS: COMMON FEMORAL VEIN: Right CFV: Unremarkable. Left CFV: Unremarkable. SUPERFICIAL FEMORAL VEIN: Right SFV: Unremarkable. Left SFV: Unremarkable. POPLITEAL VEIN: Right Popliteal: Unremarkable. Left Popliteal: Unremarkable. POSTERIOR TIBIAL VEIN: Right PTV: Unremarkable. Left PTV: Unremarkable. OTHER FINDINGS: Soft tissue edema. IMPRESSION: No evidence of deep venous thrombosis. Soft tissue edema.
[2018-05-30] MEDS ORDERED: Sodium Chloride 0.9% 50 ML IV ONE (19:51)
[2018-05-30] MEDS ORDERED: Iodixanol 320 MG/ML 100 ML BOTTLE IV ONE (19:51)
[2018-05-30] MEDS ORDERED: Nitroglycerin 2% Ointment Foilpak UD TOP STA (20:59)
[2018-05-30] MEDS ORDERED: Nitroglycerin 2% Ointment Foilpak UD TOP ONE (21:23)
--- NOTE | 2018-05-30 22:44 | CP.PCM.HP ---
<HargroveChristine - Last Filed: 05/31/18 01:41> History of Present Illness - History of Present Illness History of Present Illness: 58 yr old F presents to ED with complaint of worsening SOB on exertion and chest tightness x 4 days. PMHx includes IDDM type 2, HTN, TIA, ID 2016 ( negative cath), anxiety and gastroparesis. Associated symptoms are sweating, nausea, feeling " something sitting on her chest", feels RLE is swollen compared to LLE. Symptoms are worsened by walking, alleviated by rest. Also reports RLE pain. Denies weight gain, diarrhea, syncope. Patient reports she took her anxiety medication once hoping it would alleviate her chest discomfort but it did not alleviate it. Reports a lot of stress at work, worsened since taking on higher position. PMD: Dr. Mitchell ([employer]) Specialists: Dr. Sanches-[employer] PMHx: IDDM type 2, HTN, TIA, ID 2016 (negative cath), anxiety and gastroparesis SurgHx: cholecystectomy, appendectomy, x 1, hysterectomy, tonsillectomy FMHx: mother at 79-HTN, smoker; father -IDDM, ID; sister -IDDM complications SocHx: denies tobacco/etoh or drugs Medications: Levemir 50 units SC HS, Lispro 3 units SC ACTID, Isosorbide mononitrate ER 30mg PO QD, Losartan 25mg PO QD, Coreg 3.125mg PO BID, Aspirin 81 mg PO QD, Reglan 10mg PO BID, Xanax 1mg pO BID PRN anxiety Allergies: Penicillin Code status: Full code Emergency contact: Chelita Salgado (daughter) [phone] ER course: BP mmHg, HR bpm, Temp F, Resp rate , SpO2 % on room air -EKG: normal sinus rhythm at 74 bpm, no significant ST-T changes -CBC: wnl, coags wnl -CMP: random glucose 232; rest wnl -troponin: < 0.0120, TSH 0.53, proBNP 80.4 -CXR: no focal consolidation/significant pleural effusion or definite pneumothorax identified -Bilateral lower extremity venous duplex: no evidence of DVT, positive for soft tissue edema -Chest CT angio: no evidence of PE or other abnormality -ED treatment: Aspirin 325mg PO once, Nitroglycerin 2% top Present on Admission - Present on Admission Any Indicators Present on Admission: No History of DVT/PE: No History of Uncontrolled Diabetes: No Urinary Catheter: No Decubitus Ulcer Present: No History Surgical Site Infection Following: None Review of Systems - Constitutional Constitutional: Excessive Sweating, Fatigue. absent: Chills, Fever, Weight Gain , Weight Loss - EENT Eyes: absent: Blurred Vision Ears: Dizziness Nose/Mouth/Throat: absent: Nasal Congestion, Sore Throat - Cardiovascular Cardiovascular: Chest Pain, Chest Pain with Activity, Dyspnea. absent: Palpitations, Syncope - Respiratory Respiratory: absent: Cough, Hemoptysis - Gastrointestinal Gastrointestinal: Nausea. absent: Constipation, Diarrhea, Vomiting - Genitourinary Genitourinary: absent: Difficulty Urinating, Dysuria - Musculoskeletal Additional comments: RLE pain and swelling - Integumentary Integumentary: absent: Bleeding Lesions - Neurological Neurological: absent: Confusion, Weakness - Psychiatric Psychiatric: Anxiety - Endocrine Endocrine: absent: Polydipsia, Polyphagia, Polyuria - Hematologic/Lymphatic Hematologic: absent: Easy Bleeding, Easy Bruising Past Patient History - Past Medical History & Family History Past Medical History?: Yes - Past Social History Alcohol: None Drugs: Denies - CARDIAC Hx Hypercholesterolemia: Yes Hx Hypertension: Yes - PULMONARY Hx Respiratory Disorders: No - NEUROLOGICAL Hx Transient Ischemic Attacks (TIA): Yes - HEENT Hx HEENT Problems: No - RENAL Hx Chronic Kidney Disease: No - ENDOCRINE/METABOLIC Hx Endocrine Disorders: Yes Hx Diabetes Mellitus Type 2: Yes - HEMATOLOGICAL/ONCOLOGICAL Hx Blood Disorders: No - INTEGUMENTARY Hx Dermatological Problems: No - MUSCULOSKELETAL/RHEUMATOLOGICAL Hx Musculoskeletal Disorders: No Hx Falls: No - GASTROINTESTINAL Hx Gall Bladder Disease: Yes (Post cholecystectomy ) Hx Gastritis: Yes - GENITOURINARY/GYNECOLOGICAL Hx Genitourinary Disorders: No - PSYCHIATRIC Hx Psychophysiologic Disorder: No Hx Substance Use: No - SURGICAL HISTORY Hx Appendectomy: Yes Hx Cholecystectomy: Yes Hx Tonsillectomy: Yes - ANESTHESIA Hx Anesthesia: Yes Hx Anesthesia Reactions: No Hx Malignant Hyperthermia: No Meds Allergies/Adverse Reactions: Allergies Allergy/AdvReac Type Severity Reaction Status Date / Time Penicillins Allergy RASH Verified 08/30/16 10:02 Physical Exam - Constitutional Appears: No Acute Distress - Head Exam Head Exam: ATRAUMATIC, NORMOCEPHALIC - Eye Exam Eye Exam: EOMI, PERRL - ENT Exam ENT Exam: Mucous Membranes Moist - Neck Exam Neck exam: Positive for: Full Rom. Negative for: Lymphadenopathy - Respiratory Exam Respiratory Exam: Clear to Auscultation Bilateral, NORMAL BREATHING PATTERN. absent: Rales, Rhonchi, Wheezes - Cardiovascular Exam Cardiovascular Exam: REGULAR RHYTHM, +S1, +S2 - GI/Abdominal Exam GI & Abdominal Exam: Normal Bowel Sounds, Soft (obese). absent: Tenderness - Extremities Exam Extremities exam: Positive for: calf tenderness (RLE), full ROM, normal capillary refill, pedal pulses present. Negative for: pedal edema - Back Exam Back exam: FULL ROM - Neurological Exam Neurological exam: Alert, CN II-XII Intact, Normal Gait, Oriented x3 - Psychiatric Exam Psychiatric exam: Anxious - Skin Skin Exam: Dry, Normal Color, Warm Results - Vital Signs Recent Vital Signs: Last Vital Signs Temp 98.5 F 05/30/18 22:15 Pulse 71 05/30/18 22:15 Resp 18 05/30/18 22:15 BP 121/92 H 05/30/18 22:15 Pulse Ox 97 05/30/18 22:15 - Labs Result Diagrams: 05/30/18 16:36 05/30/18 16:36 Labs: Laboratory Results - last 24 hr 05/30/18 05/30/18 05/30/18 16:36 16:36 16:36 WBC 8.2 RBC 4.80 Hgb 13.6 Hct 40.8 MCV 85.0 D MCH 28.2 MCHC 33.2 RDW 12.9 Plt Count 258 MPV 6.4 L Neut % (Auto) 53.5 Lymph % (Auto) 38.2 Mower % (Auto) 6.6 Eos % (Auto) 1.2 Baso % (Auto) 0.5 Neut # (Auto) 4.4 Lymph # (Auto) 3.1 Mower # (Auto) 0.5 Eos # (Auto) 0.1 Baso # (Auto) 0.0 PT 11.1 INR 1.0 APTT 30.4 Sodium 136 Potassium 4.2 Chloride 103 Carbon Dioxide 26 Anion Gap 11 BUN 17 Creatinine 0.7 Est GFR ( Amer) > 60 Est GFR (Non-Af Amer) > 60 Random Glucose 232 H Calcium 9.4 Phosphorus 3.2 Magnesium 1.9 Total Bilirubin 0.3 AST 24 ALT 22 Alkaline Phosphatase 66 Troponin I < 0.0120 NT-Pro-B Natriuret Pep 80.4 Total Protein 6.7 Albumin 4.0 Globulin 2.8 Albumin/Globulin Ratio 1.4 TSH 3rd Generation 0.53 Blood Type Antibody Screen BBK History Checked 05/30/18 16:45 WBC RBC Hgb Hct MCV MCH MCHC RDW Plt Count MPV Neut % (Auto) Lymph % (Auto) Mower % (Auto) Eos % (Auto) Baso % (Auto) Neut # (Auto) Lymph # (Auto) Mower # (Auto) Eos # (Auto) Baso # (Auto) PT INR APTT Sodium Potassium Chloride Carbon Dioxide Anion Gap BUN Creatinine Est GFR ( Amer) Est GFR (Non-Af Amer) Random Glucose Calcium Phosphorus Magnesium Total Bilirubin AST ALT Alkaline Phosphatase Troponin I NT-Pro-B Natriuret Pep Total Protein Albumin Globulin Albumin/Globulin Ratio TSH 3rd Generation Blood Type A POSITIVE Antibody Screen Negative BBK History Checked Patient has bt Assessment & Plan - Assessment and Plan (Free Text) Assessment: 58 yr old F admitted for chest pain and SOB on exertion with PMHx IDDM type 2, HTN, TIA, ID 2015 (negative cath), anxiety and gastroparesis. Chest pain -acute, r/o ACS vs cosntochondritis vs anxiety -1st troponin wnl, EKG/CXR/Chest CT angio/proBNP wnl -admit to telemetry -f/u serial troponins, repeat EKG in AM -cardiology consult appreciated: Dr. Lovelace SOB on exertion -acute, normal SpO2/CXR/CT chest/proBNP, physical exam wnl -f/u echocardiogram -management as above RLE pain -acute, negative bilateral LE venous duplex -tylenol PRN pain Hypertension -chronic, controlled -continue home medications (, Losartan 25mg PO QD, Aspirin 81 mg PO QD) IDDM type 2 -chronic, controlled (patient reports HbA1c 7.0 in 03/2018) -continue home medication (Levemir 50 units SC HS Hx ID -chronic, controlled -continue home medications (Isosorbide mononitrate ER 30mg PO QD, Coreg 3.125mg PO BID) Anxiety -chronic, uncontrolled -continue home medication (Xanax 1mg pO BID PRN anxiety) Gastroparesis -chronic, controlled -continue home medication (Reglan 10mg PO BID) DVT prophylaxis -Lovenox 40 mg SC QD - Date & Time Date: 05/30/18 Time: 22:00 <Skip Ballard - Last Filed: 05/31/18 05:41> Results - Vital Signs Recent Vital Signs: Last Vital Signs Temp 98.1 F 05/31/18 00:58 Pulse 67 05/31/18 00:58 Resp 16 05/31/18 00:58 BP 128/67 05/31/18 00:58 Pulse Ox 98 05/31/18 00:58 - Labs Result Diagrams: 05/30/18 16:36 05/30/18 16:36 Labs: Laboratory Results - last 24 hr 05/30/18 05/30/18 05/30/18 16:36 16:36 16:36 WBC 8.2 RBC 4.80 Hgb 13.6 Hct 40.8 MCV 85.0 D MCH 28.2 MCHC 33.2 RDW 12.9 Plt Count 258 MPV 6.4 L Neut % (Auto) 53.5 Lymph % (Auto) 38.2 Mower % (Auto) 6.6 Eos % (Auto) 1.2 Baso % (Auto) 0.5 Neut # (Auto) 4.4 Lymph # (Auto) 3.1 Mower # (Auto) 0.5 Eos # (Auto) 0.1 Baso # (Auto) 0.0 PT 11.1 INR 1.0 APTT 30.4 Sodium 136 Potassium 4.2 Chloride 103 Carbon Dioxide 26 Anion Gap 11 BUN 17 Creatinine 0.7 Est GFR ( Amer) > 60 Est GFR (Non-Af Amer) > 60 POC Glucose (mg/dL) Random Glucose 232 H Calcium 9.4 Phosphorus 3.2 Magnesium 1.9 Total Bilirubin 0.3 AST 24 ALT 22 Alkaline Phosphatase 66 Troponin I < 0.0120 NT-Pro-B Natriuret Pep 80.4 Total Protein 6.7 Albumin 4.0 Globulin 2.8 Albumin/Globulin Ratio 1.4 TSH 3rd Generation 0.53 Blood Type Antibody Screen BBK History Checked 05/30/18 05/31/18 05/31/18 16:45 00:19 00:22 WBC RBC Hgb Hct MCV MCH MCHC RDW Plt Count MPV Neut % (Auto) Lymph % (Auto) Mower % (Auto) Eos % (Auto) Baso % (Auto) Neut # (Auto) Lymph # (Auto) Mower # (Auto) Eos # (Auto) Baso # (Auto) PT INR APTT Sodium Potassium Chloride Carbon Dioxide Anion Gap BUN Creatinine Est GFR ( Amer) Est GFR (Non-Af Amer) POC Glucose (mg/dL) 94 Random Glucose Calcium Phosphorus Magnesium Total Bilirubin AST ALT Alkaline Phosphatase Troponin I < 0.0120 NT-Pro-B Natriuret Pep Total Protein Albumin Globulin Albumin/Globulin Ratio TSH 3rd Generation Blood Type A POSITIVE Antibody Screen Negative BBK History Checked Patient has bt Attending/Attestation - Attestation I have personally seen and examined this patient.: Yes I have fully participated in the care of the patient.: Yes I have reviewed all pertinent clinical information: Yes Notes (Text): 05/31/18 05:11 I saw and examined this patient with Dr Hargrove. We discussed the case and formulated the assessment and plan. This is a 58 years old obese female with risk factors for coronary Artery disease DM, HTN and family with CAD, who comes with pressure like chest pain on exertion, lightheadedness, fatigue,weakness and decreased exercise tolerance . A&P #. Chest pain and SOB r/o ACS - CTA -ve for PE and other acute pathology -CXR shows no infiltrate -Consult Cardiology - Serial Troponin - Serial EKG - ECHO for EF, wall motion, Chamber size valve assessment #. Generalized Fatigue with Anxiety. Probable unset of a Fatigue syndrome - Xanax - Will consider referral to Psychiatry for evaluation if patient agrees #. DM II with Hyperglycemia - Regular Insulin sliding scale according to accucheck - Levemir #. Right leg pain in Diabetic with Duplex US of lower extremity negative for DVT , is probaply due to Neuropathy - pain management #. HTN - Cozaar/Coreg #. DVT prophylaxis with Lovenox. 05/31/18 05:40
[2018-05-30] MEDS ORDERED: Dextrose 50% SYRINGE Inj (50 ml) IV PRN (23:47)
[2018-05-30] MEDS ORDERED: Glucagon Recombinant 1 mg Inj IM PRN (23:47)
[2018-05-31] MEDS: Insulin Regular 100 units/ml SC SCH ×2 (00:45→07:41)
[2018-05-31 07:29] VITALS: RESP 18; TEMP 98.2
--- NOTE | 2018-05-31 07:53 | CARD ---
APPROVED REPORT Date of service: 05/30/2018 EKG Measurement Heart [id number] <Conclusion> Normal sinus rhythm Low voltage QRS Borderline ECG
[2018-05-31] MEDS ORDERED: Enoxaparin 40 mg Syringe SC SCH (09:00)
[2018-05-31] MEDS ORDERED: Pantoprazole 40 mg EC Tab PO SCH (09:00)
--- NOTE | 2018-05-31 10:00 | CP.PCM.PN ---
Objective - Vital Signs/Intake and Output Vital Signs (last 24 hours): Temp Pulse Resp BP Pulse Ox 98.2 F 65 18 113/73 99 05/31/18 07:29 05/31/18 07:29 05/31/18 07:29 05/31/18 07:29 05/31/18 07:29 - Medications Medications: Current Medications Acetaminophen (Tylenol 325mg Tab) 650 mg PO Q6 PRN PRN Reason: Pain, moderate (4-7) Alprazolam (Xanax) 1 mg PO BID PRN PRN Reason: Anxiety Last Admin: 05/31/18 00:59 Dose: 1 mg Aspirin (Ecotrin) 81 mg PO DAILY [facility] Carvedilol (Coreg) 3.125 mg PO Q12 [facility] Dextrose (Dextrose 50% Inj) 0 ml IV STAT PRN; Protocol PRN Reason: Hypoglycemia Protocol Dextrose (Glutose 15) 0 gm PO ONCE PRN; Protocol PRN Reason: Hypoglycemia Protocol Enoxaparin Sodium (Lovenox) 40 mg SC DAILY [facility] PRN Reason: Protocol Glucagon (Glucagen Diagnostic Kit) 0 mg IM STAT PRN; Protocol PRN Reason: Hypoglycemia Protocol Insulin Detemir (Levemir) 50 units SC HS [facility] Insulin Human Regular (Humulin R) 0 units SC ACHS GER PRN Reason: Protocol Last Admin: 05/31/18 07:41 Dose: Not Given Isosorbide Mononitrate (Imdur Er) 30 mg PO DAILY [facility] Losartan Potassium (Cozaar) 25 mg PO DAILY [facility] Metoclopramide HCl (Reglan) 10 mg PO BID PRN PRN Reason: Nausea/Vomiting Pantoprazole Sodium (Protonix Ec Tab) 40 mg PO DAILY [facility] - Labs Labs: 05/30/18 16:36 05/30/18 16:36 PT 11.1 Seconds (9.8-13.1) 05/30/18 16:36 INR 1.0 05/30/18 16:36 APTT 30.4 Seconds (25.6-37.1) 05/30/18 16:36
[2018-05-31] MEDS ORDERED: Perflutren Lipid Microsphere 1.5 ML SUS IV ONE (10:05)
--- NOTE | 2018-05-31 10:49 | CARD ---
APPROVED REPORT Date of service: 05/31/2018 EXAM: Two-dimensional and M-mode echocardiogram with Doppler, color Doppler with contrast. Other Information Quality : GoodRhythm : NSR INDICATION Dyspnea Chest Pain Echo Enhancing Agent Indication: Endocardial border delineation Agent/Amount Used: Definity 2D DIMENSIONS IVSd1.29 (0.7-1.1cm)LVDd4.79 (3.9-5.9cm) LVOT Diameter2.15 (1.8-2.4cm)PWd1.02 (0.7-1.1cm) IVSs1.51 (0.8-1.2cm)LVDs2.92 (2.5-4.0cm) FS (%) 39.1 %PWs1.49 (0.8-1.2cm) M-Mode DIMENSIONS Left Atrium (MM)3.86 (2.5-4.0cm)IVSd1.38 (0.7-1.1cm) Aortic Root3.31 (2.2-3.7cm)LVDd5.02 (4.0-5.6cm) Aortic Cusp Exc.1.99 (1.5-2.0cm)PWd1.02 (0.7-1.1cm) IVSs1.74 cmFS (%) 40 % LVDs3.01 (2.0-3.8cm)PWs1.35 cm Mitral Valve MV E Bcpyywbv35.3cm/sMV DECEL [id number] A Clnrbaui09.0cm/s MV COS45tsN/A ratio1.1MVA (PHT)2.95cm2 TDI E/Lateral E'0.0E/Medial E'0.0 Pulmonary Valve PV Peak Cwpwtbjy25.4cm/s LEFT VENTRICLE The left ventricle is normal size. There is normal left ventricular wall thickness. Left ventricle systolic function is normal. The Ejection Fraction is 65-70%. There is normal LV segmental wall motion. Transmitral Doppler flow pattern is Grade I-abnormal relaxation pattern. RIGHT VENTRICLE The right ventricle is normal size. There is normal right ventricular wall thickness. The right ventricular systolic function is normal. ATRIA The left atrium size is normal. The right atrium size is normal. AORTIC VALVE The aortic valve is normal in structure. No aortic regurgitation is present. There is no aortic valvular stenosis. MITRAL VALVE The mitral valve is normal in structure. There is no evidence of mitral valve prolapse. There is no mitral valve stenosis. There is no mitral valve regurgitation noted. TRICUSPID VALVE The tricuspid valve is normal in structure. There is no tricuspid valve regurgitation noted. PULMONIC VALVE The pulmonary valve is normal in structure. There is no pulmonic valvular regurgitation. GREAT VESSELS The aortic root is normal in size. Due to poor image quality, the IVC could not be assessed. PERICARDIAL EFFUSION The pericardium appears normal. <Conclusion> The left ventricle is normal size. There is normal left ventricular wall thickness. There is normal LV segmental wall motion. Left ventricle systolic function is normal. The Ejection Fraction is 65-70%. Transmitral Doppler flow pattern is Grade I-abnormal relaxation pattern.
--- NOTE | 2018-05-31 11:01 | CT ---
Date of service: 05/30/2018 PROCEDURE: CT Chest with contrast (Pulmonary Angiogram) HISTORY: CHEST PAIN SOB COMPARISON: Correlation made with chest radiograph obtained earlier same day TECHNIQUE: Axial computed tomography images were obtained of the chest in the pulmonary arterial phase of enhancement. Coronal and sagittal reformatted images were created and reviewed. Intravenous contrast dose: 80 cc Visipaque 320 contrast material. Radiation dose: Total exam DLP = 324.4 80 cc mGy-cm. This CT exam was performed using one or more of the following dose reduction techniques: Automated exposure control, adjustment of the mA and/or kV according to patient size, and/or use of iterative reconstruction technique. FINDINGS: PULMONARY ARTERIES: Unremarkable. No pulmonary embolism. Pulmonary trunk measures approximately 3.16 cm AORTA: No acute findings. No thoracic aortic aneurysm. Ascending thoracic aorta measures approximately 3.5 cm and descending thoracic aorta measures approximately 2.5 cm. LUNGS: Unremarkable. No nodule, mass or pulmonary consolidation. . Minimal linear atelectasis and/or scarring seen in the left lung base and lingular regions PLEURAL SPACES: Unremarkable. No effusion or pneumothorax. HEART: Heart appears borderline/mildly enlarged. No significant pericardial effusion. No significant pericardial effusion. No cardiomegaly. No significant pericardial effusion. LYMPH NODES: No significant mediastinal or hilar adenopathy. Small hiatal hernia with wall thickening of the distal esophagus likely due to protrusion gastric mucosa. Possibility of esophagitis not excluded BONES, CHEST WALL: Mild multilevel degenerative spondylosis of the thoracic spine. OTHER FINDINGS: Cholecystectomy. Spleen appears upper limits of normal in size measuring nearly 13 cm in AP dimension IMPRESSION: No evidence of acute central pulmonary embolus. Mild cardiomegaly Minimal linear atelectasis and/or scarring seen in the left lung base and lingular regions
--- NOTE | 2018-05-31 11:34 | CP.PCM.CON ---
History of Present Illness - History of Present Illness History of Present Illness: This 58-year-old female who has been a diabetic for over 30 years has come into the hospital complaining of intermittent bouts of chest discomfort which is retrosternal and often brought on by minimal physical activity. The patient also reports worsening dyspnea on exertion such as simply taking a shower and making a bed requires her to sit down and catch her breath. She also reports a vague sense of orthopnea. She has developed a mild swelling of her right leg over last month to month and a half and complains of tenderness of the right calf muscle. There is no history of injury to the leg. She also is a long-standing hypertensive and gives history of having suffered transient ischemic episodes on multiple occasions over last 4-5 years. She was also told of having suffered a myocardial infarction while visiting [place] 3 years back. She underwent a stress test within 3 days of this event and never required coronary angiogram. She has never been a smoker. She has a strong family history of vascular disease in that multiple members of the family have of coronary artery disease. Physical examination shows an anxious female who is comfortable at rest. Her heart rate was 74 bpm and regular. Her blood pressure was 134/74 mmHg. Her jugular venous pressure was not elevated. There right leg up to her knee appeared slightly swollen though there was no pitting edema at the ankle. The right calf muscle was significantly tender. Her pedal pulses were well felt. There was no carotid bruit. Her thyroid and breast did not show anything abnormal. The apex was not palpable. The first and second heart sounds were normal. There was no murmur or gallop. There were no rales. Her abdomen was soft and liver and spleen are not palpable. Her electro-cardiogram showed sinus rhythm with a normal EKG pattern. An earlier electro-cardial gram of 2016 showed a similar pattern with no Q waves and no ST-T abnormalities of myocardial ischemia. Her echocardiogram done today shows a normal-sized left ventricle with normal regional wall motion and normal left ventricular systolic function. There was mild diastolic dysfunction. There was no significant valvulopathy. Her lab tests showed a normal hemoglobin and hematocrit with normal troponin levels 2 indicating no evidence of myocyte injury. Her liver profile and TSH were normal. Impression: Chest pain strongly suggestive off myocardial ischemia. No evidence of acute coronary syndrome no evidence of left ventricular systolic dysfunction or prior myocardial infarction. History of vascular disease in the form of TIAs. Hypertension diabetes chronic exogenous obesity. I have recommended that the patient should be watched overnight to make sure she does not get any rest pains. If she is stable from cardiovascular point of view because this is a weekend she should be allowed to return home and have a stress test in early part of next week. I have explained this course of action to her, in the meantime she should continue to take an aspirin every day. Past Patient History - Past Medical History & Family History Past Medical History?: Yes - Past Social History Alcohol: None Drugs: Denies - CARDIAC Hx Hypercholesterolemia: Yes Hx Hypertension: Yes - PULMONARY Hx Respiratory Disorders: No - NEUROLOGICAL Hx Transient Ischemic Attacks (TIA): Yes - HEENT Hx HEENT Problems: No - RENAL Hx Chronic Kidney Disease: No - ENDOCRINE/METABOLIC Hx Endocrine Disorders: Yes Hx Diabetes Mellitus Type 2: Yes - HEMATOLOGICAL/ONCOLOGICAL Hx Blood Disorders: No - INTEGUMENTARY Hx Dermatological Problems: No - MUSCULOSKELETAL/RHEUMATOLOGICAL Hx Musculoskeletal Disorders: No Hx Falls: No - GASTROINTESTINAL Hx Gall Bladder Disease: Yes (Post cholecystectomy ) Hx Gastritis: Yes - GENITOURINARY/GYNECOLOGICAL Hx Genitourinary Disorders: No - PSYCHIATRIC Hx Psychophysiologic Disorder: No Hx Substance Use: No - SURGICAL HISTORY Hx Appendectomy: Yes Hx Cholecystectomy: Yes Hx Tonsillectomy: Yes - ANESTHESIA Hx Anesthesia: Yes Hx Anesthesia Reactions: No Hx Malignant Hyperthermia: No Meds Allergies/Adverse Reactions: Allergies Allergy/AdvReac Type Severity Reaction Status Date / Time Penicillins Allergy RASH Verified 08/30/16 10:02 - Medications Medications: Current Medications Acetaminophen (Tylenol 325mg Tab) 650 mg PO Q6 PRN PRN Reason: Pain, moderate (4-7) Alprazolam (Xanax) 1 mg PO BID PRN PRN Reason: Anxiety Last Admin: 05/31/18 00:59 Dose: 1 mg Aspirin (Ecotrin) 81 mg PO DAILY G[facility] Last Admin: 05/31/18 10:48 Dose: 81 mg Carvedilol (Coreg) 3.125 mg PO Q12 GER Last Admin: 05/31/18 10:46 Dose: 3.125 mg Dextrose (Dextrose 50% Inj) 0 ml IV STAT PRN; Protocol PRN Reason: Hypoglycemia Protocol Dextrose (Glutose 15) 0 gm PO ONCE PRN; Protocol PRN Reason: Hypoglycemia Protocol Enoxaparin Sodium (Lovenox) 40 mg SC DAILY [facility] PRN Reason: Protocol Last Admin: 05/31/18 10:50 Dose: 40 mg Glucagon (Glucagen Diagnostic Kit) 0 mg IM STAT PRN; Protocol PRN Reason: Hypoglycemia Protocol Insulin Detemir (Levemir) 50 units SC HS [facility] Insulin Human Regular (Humulin R) 0 units SC ACHS [facility] PRN Reason: Protocol Last Admin: 05/31/18 07:41 Dose: Not Given Isosorbide Mononitrate (Imdur Er) 30 mg PO DAILY [facility] Last Admin: 05/31/18 10:48 Dose: 30 mg Losartan Potassium (Cozaar) 25 mg PO DAILY [facility] Last Admin: 05/31/18 10:47 Dose: 25 mg Metoclopramide HCl (Reglan) 10 mg PO BID PRN PRN Reason: Nausea/Vomiting Pantoprazole Sodium (Protonix Ec Tab) 40 mg PO DAILY [facility] Last Admin: 05/31/18 10:49 Dose: 40 mg Results - Vital Signs Recent Vital Signs: Last Vital Signs Temp 98.2 F 05/31/18 07:29 Pulse 71 05/31/18 10:47 Resp 18 05/31/18 07:29 BP 122/79 05/31/18 10:47 Pulse Ox 99 05/31/18 07:29 - Labs Result Diagrams: 05/30/18 16:36 05/30/18 16:36 Labs: Laboratory Results - last 24 hr 05/30/18 05/30/18 05/30/18 16:36 16:36 16:36 WBC 8.2 RBC 4.80 Hgb 13.6 Hct 40.8 MCV 85.0 D MCH 28.2 MCHC 33.2 RDW 12.9 Plt Count 258 MPV 6.4 L Neut % (Auto) 53.5 Lymph % (Auto) 38.2 [place] % (Auto) 6.6 Eos % (Auto) 1.2 Baso % (Auto) 0.5 Neut # (Auto) 4.4 Lymph # (Auto) 3.1 [place] # (Auto) 0.5 Eos # (Auto) 0.1 Baso # (Auto) 0.0 PT 11.1 INR 1.0 APTT 30.4 Sodium 136 Potassium 4.2 Chloride 103 Carbon Dioxide 26 Anion Gap 11 BUN 17 Creatinine 0.7 Est GFR ( Amer) > 60 Est GFR (Non-Af Amer) > 60 POC Glucose (mg/dL) Random Glucose 232 H Calcium 9.4 Phosphorus 3.2 Magnesium 1.9 Total Bilirubin 0.3 AST 24 ALT 22 Alkaline Phosphatase 66 Troponin I < 0.0120 NT-Pro-B Natriuret Pep 80.4 Total Protein 6.7 Albumin 4.0 Globulin 2.8 Albumin/Globulin Ratio 1.4 TSH 3rd Generation 0.53 Blood Type Antibody Screen BBK History Checked 05/30/18 05/31/18 05/31/18 16:45 00:19 00:22 WBC RBC Hgb Hct MCV MCH MCHC RDW Plt Count MPV Neut % (Auto) Lymph % (Auto) [place] % (Auto) Eos % (Auto) Baso % (Auto) Neut # (Auto) Lymph # (Auto) [place] # (Auto) Eos # (Auto) Baso # (Auto) PT INR APTT Sodium Potassium Chloride Carbon Dioxide Anion Gap BUN Creatinine Est GFR ( Amer) Est GFR (Non-Af Amer) POC Glucose (mg/dL) 94 Random Glucose Calcium Phosphorus Magnesium Total Bilirubin AST ALT Alkaline Phosphatase Troponin I < 0.0120 NT-Pro-B Natriuret Pep Total Protein Albumin Globulin Albumin/Globulin Ratio TSH 3rd Generation Blood Type A POSITIVE Antibody Screen Negative BBK History Checked Patient has bt 05/31/18 06:59 WBC RBC Hgb Hct MCV MCH MCHC RDW Plt Count MPV Neut % (Auto) Lymph % (Auto) [place] % (Auto) Eos % (Auto) Baso % (Auto) Neut # (Auto) Lymph # (Auto) [place] # (Auto) Eos # (Auto) Baso # (Auto) PT INR APTT Sodium Potassium Chloride Carbon Dioxide Anion Gap BUN Creatinine Est GFR ( Amer) Est GFR (Non-Af Amer) POC Glucose (mg/dL) 147 H Random Glucose Calcium Phosphorus Magnesium Total Bilirubin AST ALT Alkaline Phosphatase Troponin I NT-Pro-B Natriuret Pep Total Protein Albumin Globulin Albumin/Globulin Ratio TSH 3rd Generation Blood Type Antibody Screen BBK History Checked
--- NOTE | 2018-05-31 11:59 | CP.PCM.DIS ---
Provider - Provider Date of Admission: 05/30/18 21:58 Attending physician: Skip Ballard Time Spent in preparation of Discharge (in minutes): 35 Diagnosis - Discharge Diagnosis (1) Chest pain Status: Acute Comment: Chest pain, ACS was ruled out (2) Anxiety Status: Chronic (3) Diabetes mellitus Status: Chronic (4) HTN (hypertension) Status: Chronic Comment: HTN stable Hospital Course - Lab Results Lab Results: Most Recent Lab Values WBC 8.2 K/uL (4.8-10.8) 05/30/18 16:36 RBC 4.80 Mil/uL (3.80-5.20) 05/30/18 16:36 Hgb 13.6 g/dL (12.0-16.0) 05/30/18 16:36 Hct 40.8 % (34.0-47.0) 05/30/18 16:36 MCV 85.0 fl (81.0-99.0) D 05/30/18 16:36 MCH 28.2 pg (27.0-31.0) 05/30/18 16:36 MCHC 33.2 g/dL (33.0-37.0) 05/30/18 16:36 RDW 12.9 % (11.5-14.5) 05/30/18 16:36 Plt Count 258 K/uL (130-400) 05/30/18 16:36 MPV 6.4 fl (7.2-11.7) L 05/30/18 16:36 Neut % (Auto) 53.5 % (50.0-75.0) 05/30/18 16:36 Lymph % (Auto) 38.2 % (20.0-40.0) 05/30/18 16:36 [place] % (Auto) 6.6 % (0.0-10.0) 05/30/18 16:36 Eos % (Auto) 1.2 % (0.0-4.0) 05/30/18 16:36 Baso % (Auto) 0.5 % (0.0-2.0) 05/30/18 16:36 Neut # (Auto) 4.4 K/uL (1.8-7.0) 05/30/18 16:36 Lymph # (Auto) 3.1 K/uL (1.0-4.3) 05/30/18 16:36 [place] # (Auto) 0.5 K/uL (0.0-0.8) 05/30/18 16:36 Eos # (Auto) 0.1 K/uL (0.0-0.7) 05/30/18 16:36 Baso # (Auto) 0.0 K/uL (0.0-0.2) 05/30/18 16:36 PT 11.1 Seconds (9.8-13.1) 05/30/18 16:36 INR 1.0 05/30/18 16:36 APTT 30.4 Seconds (25.6-37.1) 05/30/18 16:36 Sodium 136 mmol/l (132-148) 05/30/18 16:36 Potassium 4.2 MMOL/L (3.6-5.0) 05/30/18 16:36 Chloride 103 mmol/L (98-107) 05/30/18 16:36 Carbon Dioxide 26 mmol/L (22-30) 05/30/18 16:36 Anion Gap 11 (10-20) 05/30/18 16:36 BUN 17 mg/dl (7-17) 05/30/18 16:36 Creatinine 0.7 mg/dl (0.7-1.2) 05/30/18 16:36 Est GFR ( Amer) > 60 05/30/18 16:36 Est GFR (Non-Af Amer) > 60 05/30/18 16:36 POC Glucose (mg/dL) 147 mg/dL (65-110) H 05/31/18 06:59 Random Glucose 232 mg/dL (65-105) H 05/30/18 16:36 Calcium 9.4 mg/dL (8.4-10.2) 05/30/18 16:36 Phosphorus 3.2 mg/dl (2.5-4.5) 05/30/18 16:36 Magnesium 1.9 MG/DL (1.6-2.3) 05/30/18 16:36 Total Bilirubin 0.3 mg/dl (0.2-1.3) 05/30/18 16:36 AST 24 U/L (14-36) 05/30/18 16:36 ALT 22 U/L (9-52) 05/30/18 16:36 Alkaline Phosphatase 66 U/L (38-126) 05/30/18 16:36 Troponin I < 0.0120 ng/mL (0.00-0.120) 05/31/18 00:22 NT-Pro-B Natriuret Pep 80.4 pg/ml (0-900) 05/30/18 16:36 Total Protein 6.7 G/DL (6.3-8.2) 05/30/18 16:36 Albumin 4.0 g/dL (3.5-5.0) 05/30/18 16:36 Globulin 2.8 gm/dL (2.2-3.9) 05/30/18 16:36 Albumin/Globulin Ratio 1.4 (1.0-2.1) 05/30/18 16:36 TSH 3rd Generation 0.53 mIU/ML (0.46-4.68) 05/30/18 16:36 Blood Type A POSITIVE 05/30/18 16:45 Antibody Screen Negative 05/30/18 16:45 BBK History Checked Patient has bt 05/30/18 16:45 - Hospital Course Hospital Course: 58 y/o F admitted on 05/30/18 for chest pain and SOB on exertion with PMHx IDDM type 2, HTN, TIA, [place] 2015 (negative cath), anxiety and gastroparesis. During her hospital course chest pain 2/2 ACS was ruled out, VS reviewed and found WNL , cardiac troponin x2 were within normal limits, EKG NSR with no ST/T segment changes, Echocardiogram done and reported unremarkable, as per cardiology chest pain suggestive of possible myocardial ischemia given her PMHX and risk factors with no evidence of ACS at this time, patient is cleared to be D/C home with instructions to follow up with cardiac stress test done as an outpatient, and patient has an appointment for this test and f/u with operations recruiter on 06/03/18, also continue with ASA 81 mg PO QD. Patient stable on D/C, with significant improvement of symptoms, VS WNL. Patient is instructed to f/u with PMD in 2 to 3 days and with cardiology on the following Sunday 06/03 for Cardiac stress test. ED instructions given. Mediations on D/C: Continue with Home medicine. Discharge Exam - Head Exam Head Exam: ATRAUMATIC, NORMOCEPHALIC - Eye Exam Eye Exam: EOMI, PERRL - Neck Exam Neck exam: Full Rom - Respiratory Exam Respiratory Exam: Clear to PA & Lateral. absent: Wheezes - Cardiovascular Exam Cardiovascular Exam: REGULAR RHYTHM, +S1, +S2 - GI/Abdominal Exam GI & Abdominal Exam: Normal Bowel Sounds, Soft. absent: Tenderness - Neurological Exam Neurological exam: Alert, CN II-XII Intact, Normal Gait, Oriented x3 - Psychiatric Exam Psychiatric exam: Anxious - Skin Skin Exam: Normal Color, Warm Discharge Plan - Discharge Medications Prescriptions: Pantoprazole [Protonix EC Tab] 40 mg PO DAILY #30 ect - Follow Up Plan Condition: GOOD Disposition: HOME/ ROUTINE Instructions: Type 2 Diabetes, Anxiety, Adult (DC), Chest Pain (DC) Additional Instructions: Follow up with PMD in 2 to 3 days. Follow up with Cardiology in 3 days. Referrals: Jaron Lovelace MD [Staff Provider] -
[2018-05-31 14:05] VITALS: BP 116/69; PULSE 78
[2018-05-31 15:39] VITALS: O2SAT 97
[2018-05-31] MEDS ORDERED: Insulin Detemir 100 Units/ml Inj SC SCH (22:00)
--- NOTE | 2018-06-01 09:00 | CARD ---
APPROVED REPORT Date of service: 05/31/2018 EKG Measurement Heart [id number] <Conclusion> Normal sinus rhythm Normal ECG
== END 2018-05-31 12:00 | disposition home or self-care (01) ==
LOC: H.ER 15:39 → H.ERHOLD 21:58
PROVIDERS: ADMIT Internal Medicine; ATTEND Internal Medicine
DX: R07.9 Chest pain, unspecified (principal); Z88.0 Allergy status to penicillin; Z86.73 Personal history of transient ischemic attack (TIA), and cerebral infarction without residual deficits; I10 Essential (primary) hypertension; I25.2 Old myocardial infarction; E11.9 Type 2 diabetes mellitus without complications; Z79.4 Long term (current) use of insulin; K29.70 Gastritis, unspecified, without bleeding; E78.00 Pure hypercholesterolemia, unspecified; F41.9 Anxiety disorder, unspecified; K31.84 Gastroparesis; R06.02 Shortness of breath; E66.09 Other obesity due to excess calories; Z68.38 Body mass index [BMI] 38.0-38.9, adult; M79.604 Pain in right leg
CPT/HCPCS: 71045; 71275; 80053; 82948; 83735; 83880; 84100; 84443; 84484; 85025; 85610; 85730; 86850; 86900; 93005; 93306; 93970; 96372; 99284; G0378; J1650; Q9967

== ENCOUNTER 2018-07-01 11:30 | Emergency (ER) | payer MEDICAID ==
[2018-07-01 11:49] VITALS: BMI 37.9
[2018-07-01 11:52] VITALS: BP 148/86; PULSE 73; RESP 17; TEMP 98.1; O2SAT 98
[2018-07-01] MEDS ORDERED: Morphine 4 MG/ML VIAL IM STA (12:41)
[2018-07-01] MEDS ORDERED: Morphine 4 MG/ML VIAL ONE (13:22)
--- NOTE | 2018-07-01 14:31 | ED PDOC ---
HPI: Back Chief Complaint (Provider): Back Pain History Per: Patient History/Exam Limitations: no limitations Onset/Duration Of Symptoms: Days (x2 weeks) Current Symptoms Are (Timing): Still Present Additional Complaint(s): 58 year old female presents to the ED for evaluation of constant left sided lower back pain radiating into her left buttock and leg for the last two weeks, worse with sitting for long periods of time. She admits seeing her PMD two weeks ago for the same complaints where she was prescribed flexeril and Motrin 600mg without relief. Otherwise denies fever, chills, bowel / bladder incontinence, saddle anesthesias, numbness, weakness, paresthesias, and urinary sx. PMD: Marc Mitchell <Nyasia Love - Last Filed: 07/01/18 23:58> <Charissa Sandhu - Last Filed: 07/03/18 17:20> Time Seen by Provider: 07/01/18 12:19 Chief Complaint (Nursing): Back Pain Past Medical History Reviewed: Historical Data, Nursing Documentation, Vital Signs Vital Signs: Last Vital Signs Temp 98.1 F 07/01/18 11:49 Pulse 73 07/01/18 11:49 Resp 17 07/01/18 11:49 BP 148/86 07/01/18 11:49 Pulse Ox 98 07/01/18 11:49 - Medical History PMH: Diabetes, Gastritis, Gall Bladder Disease (Post cholecystectomy ), HTN, Hypercholesterolemia, TIA Denies: Chronic Kidney Disease - Surgical History Surgical History: Appendectomy, Cholecystectomy, Endoscopy, Tonsillectomy - Family History Family History: States: [place], Hypertension - Social History Current smoker - smoking cessation education provided: No Alcohol: None Drugs: Denies - Immunization History Hx Tetanus Toxoid Vaccination: No Hx Influenza Vaccination: No Hx Pneumococcal Vaccination: No <Nyasia Love - Last Filed: 07/01/18 23:58> Vital Signs: Last Vital Signs Temp 98.1 F 07/01/18 11:49 Pulse 73 07/01/18 11:49 Resp 17 07/01/18 11:49 BP 148/86 07/01/18 11:49 Pulse Ox 98 07/01/18 23:59 <Charissa Sandhu - Last Filed: 07/03/18 17:20> - Home Medications Home Medications: Ambulatory Orders Medication Instructions Recorded RX: Aspirin [Aspirin EC] 81 mg PO DAILY 03/19/15 RX: Insulin Detemir [Levemir] 50 unit SC HS 03/19/15 RX: Isosorbide Mononitrate ER 30 mg PO DAILY 09/05/16 [Imdur ER] RX: Carvedilol [Coreg] 3.125 mg PO Q12 tab 09/06/16 RX: Insulin Lispro [Humalog 3 unit SQ ACTID #1 cartridge 09/06/16 (Insulin Lispro)] RX: Losartan [Cozaar] 25 mg PO DAILY tab 09/06/16 RX: ALPRAZolam [Xanax] 1 mg PO BID PRN 08/21/17 RX: Metoclopramide [Reglan] 10 mg PO BID PRN 08/21/17 RX: Pantoprazole [Protonix EC Tab] 40 mg PO DAILY #30 ect 05/31/18 Cyclobenzaprine [Flexeril] 5 mg PO Q8H PRN #20 tab 07/01/18 - Allergies Allergies/Adverse Reactions: Allergies Allergy/AdvReac Type Severity Reaction Status Date / Time Penicillins Allergy RASH Verified 08/30/16 10:02 Supervising Attending Note - Attestation: I have personally seen and examined this patient.: No I have reviewed all pertinent clinical information: Yes <Charissa Sandhu - Last Filed: 07/03/18 17:20> Review of Systems ROS Statement: Except As Marked, All Systems Reviewed And Found Negative Constitutional: Negative for: Fever, Chills Genitourinary Female: Negative for: Dysuria, Frequency, Incontinence (bladder or bowel) Musculoskeletal: Positive for: Back Pain (left sided lower radiating into left buttock and leg, worse with sitting for long periods) Neurological: Negative for: Weakness, Numbness, Other (paresthesias or saddle anesthesia) <Nyasia Love - Last Filed: 07/01/18 23:58> Physical Exam - Reviewed Nursing Documentation Reviewed: Yes Vital Signs Reviewed: Yes - Physical Exam Appears: Positive for: No Acute Distress Head Exam: Positive for: ATRAUMATIC, NORMOCEPHALIC Skin: Positive for: Normal Color, Warm, Dry Eye Exam: Positive for: Normal appearance Neck: Positive for: Normal Cardiovascular/Chest: Positive for: Regular Rate, Rhythm Respiratory: Positive for: Normal Breath Sounds. Negative for: Accessory Muscle Use, Respiratory Distress Gastrointestinal/Abdominal: Positive for: Normal Exam, Soft. Negative for: Tend erness Back: Positive for: Normal Inspection, Other (left sided lumbar para spinal tenderness; positive left sided straight leg raise). Negative for: Vertebral Tenderness Extremity: Positive for: Normal ROM Neurologic/Psych: Positive for: Alert, Oriented (x3), Gait (normal, unassisted) <Nyasia Love - Last Filed: 07/01/18 23:58> - ECG O2 Sat by Pulse Oximetry: 98 (RA) Pulse Ox Interpretation: Normal <Nyasia Love - Last Filed: 07/01/18 23:58> Medical Decision Making Medical Decision Making: Time: 1221 Initial Impression: sciatic back pain Initial Plan: --U-dip --L-spine XR --Flexeril 5mg PO --Morphine 4mg IM --Tylenol 975mg PO --Zofran ODT 4mg PO 1430 Pt is to be d/c after u-dip shows no clinically significant abnormalities. Given rx for flexeril and referral for ortho. Advised to follow up with PMD or return to ED if symptoms worsen. Scribe Attestation: Documented by Erica Kohler, acting as a scribe for Nyasia Love PA-C. Provider Scribe Attestation: All medical record entries made by the Scribe were at my direction and personally dictated by me. I have reviewed the chart and agree that the record accurately reflects my personal performance of the history, physical exam, medical decision making, and the department course for this patient. I have also personally directed, reviewed, and agree with the discharge instructions and disposition. <Nyasia Love - Last Filed: 07/01/18 23:58> Disposition - Disposition Disposition: Routine/Home Disposition Time: 14:00 <Nyasia Love - Last Filed: 07/01/18 23:58> <Charissa Sandhu - Last Filed: 07/03/18 17:20> - Clinical Impression Clinical Impression: Sciatica - Disposition Referrals: Nate Ricardo MD [Staff Provider] - Condition: STABLE Additional Instructions: Take flexeril every 8 hours as needed for back pain Continue taking 600mg motrin every 6 hours with food as needed for back pain Followup with orthopedic doctor Return to ED if symptoms persist or worsen Prescriptions: Cyclobenzaprine [Flexeril] 5 mg PO Q8H PRN #20 tab PRN Reason: Muscle Spasm Instructions: Sciatica (DC) Forms: [facility] (Persian), [facility] School/Work Excuse
== END 2018-07-01 14:26 | disposition home or self-care (01) ==
LOC: H.ER 11:30
DX: M54.32 Sciatica, left side (principal); E11.9 Type 2 diabetes mellitus without complications; E78.00 Pure hypercholesterolemia, unspecified; Z79.4 Long term (current) use of insulin; Z86.73 Personal history of transient ischemic attack (TIA), and cerebral infarction without residual deficits; Z88.0 Allergy status to penicillin
CPT/HCPCS: 96372; 99283; J2270

== ENCOUNTER 2019-02-10 12:39 | Emergency (ER) | payer MEDICAID, OTHER ==
[2019-02-10 12:40] VITALS: BMI 37.9
[2019-02-10] MEDS ORDERED: Sodium Chloride 0.9% 1,000 ML IV STA ×2 (13:16→15:25)
--- NOTE | 2019-02-10 13:35 | RAD ---
Date of service: 02/10/2019 HISTORY: possible admission COMPARISON: 05/30/2018 FINDINGS: LUNGS: No active pulmonary disease. PLEURA: No significant pleural effusion identified, no pneumothorax apparent. CARDIOVASCULAR: No atherosclerotic calcification present No radiographic findings to suggest acute or significant cardiovascular disease. OSSEOUS STRUCTURES: No significant abnormalities. VISUALIZED UPPER ABDOMEN: Normal. OTHER FINDINGS: None. IMPRESSION: No active disease. No significant interval change compared to the prior examination(s).
[2019-02-10 13:47] LABS: VENOUS BLOOD GAS BASE EXCESS -1.5 mmol/L (0.0-2.0); VENOUS BLOOD GAS PCO2 44 mmHg (40-60); VENOUS BLOOD GAS PO2 34 mm/Hg (30-55); VENOUS BLOOD PH 7.35 (7.32-7.43)
[2019-02-10 13:49] LABS: BASO # 0.1 K/uL (0.0-0.2); BASO % 0.5 % (0.0-2.0); EOS # 0.1 K/uL (0.0-0.7); EOS % 0.8 % (0.0-4.0); HEMOGLOBIN 14.3 g/dL (12.0-16.0); LYMPH # 5.4 K/uL (1.0-4.3); LYMPH % 37.2 % (20.0-40.0); MEAN CELL VOLUME 85.3 fl (81.0-99.0); MEAN CORPUSCULAR HEMOGLOBIN 28.9 pg (27.0-31.0); MEAN CORPUSCULAR HGB CONC 33.8 g/dL (33.0-37.0); MEAN PLATELET VOLUME 6.4 fl (7.2-11.7); MONO % 6.7 % (0.0-10.0); NEUT % 54.8 % (50.0-75.0); RBC 4.96 Mil/uL (3.80-5.20); RED CELL DISTRIBUTION WIDTH 13.3 % (11.5-14.5); WHITE BLOOD COUNT 14.6 K/uL (4.8-10.8)
[2019-02-10 13:51] LABS: INR 1.1
[2019-02-10 13:54] LABS: PARTIAL THROMBOPLASTIN TIME 32.9 Seconds (25.6-37.1)
[2019-02-10 13:55] LABS: ALB/GLOB RATIO 1.4 (1.0-2.1); ALBUMIN 4.4 g/dL (3.5-5.0); ALT/SGPT 28 U/L (9-52); AST/SGOT 27 U/L (14-36); BLOOD UREA NITROGEN 20 mg/dl (7-17); CALCIUM 9.3 mg/dL (8.4-10.2); GFR NON-AFRICAN AMERICAN > 60
[2019-02-10 14:06] LABS: B-TYPE NATRIURETIC PEPTIDE 23.8 pg/ml (0-900)
[2019-02-10 14:37] LABS: SQUAMOUS EPITHIAL < 1 /hpf (0-5); URINE BACTERIA RARE (<OCC); URINE BILIRUBIN NEGATIVE (NEGATIVE); URINE BLOOD NEGATIVE (NEGATIVE); URINE CLARITY CLEAR (Clear); URINE COLOR COLORLESS (YELLOW); URINE GLUCOSE (UA) NEG (NEGATIVE); URINE LEUKOCYTE ESTERASE NEG Leu/uL (Negative); URINE PROTEIN NEGATIVE (NEGATIVE); URINE UROBILINOGEN 0.2-1.0 mg/dL (0.2-1.0)
--- NOTE | 2019-02-10 14:42 | ED PDOC ---
Hyperglycemia/Hypoglycemia Time Seen by Provider: 02/10/19 13:15 Chief Complaint (Nursing): Altered Mental Status Chief Complaint (Provider): Dizziness History Per: Patient History/Exam Limitations: no limitations Onset/Duration Of Symptoms: Days (3) Current Symptoms Are (Timing): Still Present Current Diabetic Medications: Insulin : The patient does not have any of the infectious symptoms listed except for those marked. Additional Complaint(s): 58yo female with history of diabetes, comes to ER for evaluation, reporting 3 days of weakness. She states she feels "a heavy weight" on her, and feels dizzy and confused. She states in this time her blood sugar has been out of control, in the 300's and states she is compliant with all her medications. She states she was at work, was dizzy and confused and her blood sugar was 300 so she took 10 units of insulin and went home. She reports she is very strict with her diet as well as medications as her father and sister both have diabetes and HTN and had renal failure due to complications. She otherwise denies any headache, focal weakness, or other complaints. Past Medical History Reviewed: Historical Data, Nursing Documentation, Vital Signs Vital Signs: Last Vital Signs Temp 97.9 F 02/10/19 12:48 Pulse Resp BP 139/97 H 02/10/19 12:48 Pulse Ox Primary Care Provider: Marc Mitchell - Medical History PMH: Diabetes, Gastritis, Gall Bladder Disease (Post cholecystectomy ), HTN, Hypercholesterolemia, TIA Denies: Chronic Kidney Disease - Surgical History Surgical History: Appendectomy, Cholecystectomy, Endoscopy, Tonsillectomy - Family History Family History: States: Unknown Family Hx, GA, Hypertension - Social History Current smoker - smoking cessation education provided: No Alcohol: None Drugs: Denies - Immunization History Hx Tetanus Toxoid Vaccination: No Hx Influenza Vaccination: No Hx Pneumococcal Vaccination: No - Home Medications Home Medications: Ambulatory Orders Medication Instructions Recorded Aspirin [Aspirin EC] 81 mg PO DAILY 03/19/15 Insulin Detemir [Levemir] 50 unit SC HS 03/19/15 Isosorbide Mononitrate ER [Imdur 30 mg PO DAILY 09/05/16 ER] Carvedilol [Coreg] 3.125 mg PO Q12 tab 09/06/16 Insulin Lispro [Humalog (Insulin 3 unit SQ ACTID #1 cartridge 09/06/16 Lispro)] Losartan [Cozaar] 25 mg PO DAILY tab 09/06/16 ALPRAZolam [Xanax] 1 mg PO BID PRN 08/21/17 Metoclopramide [Reglan] 10 mg PO BID PRN 08/21/17 Pantoprazole [Protonix EC Tab] 40 mg PO DAILY #30 ect 05/31/18 Cyclobenzaprine [Flexeril] 5 mg PO Q8H PRN #20 tab 07/01/18 - Allergies Allergies/Adverse Reactions: Allergies Allergy/AdvReac Type Severity Reaction Status Date / Time Penicillins Allergy RASH Verified 08/30/16 10:02 Review of Systems ROS Statement: Except As Marked, All Systems Reviewed And Found Negative Constitutional: Positive for: Weakness, Malaise Cardiovascular: Negative for: Chest Pain Neurological: Positive for: Dizziness. Negative for: Weakness, Headache Physical Exam - Reviewed Nursing Documentation Reviewed: Yes Vital Signs Reviewed: Yes - Physical Exam Appears: Positive for: Non-toxic, No Acute Distress Head Exam: Positive for: ATRAUMATIC, NORMAL INSPECTION, NORMOCEPHALIC Skin: Positive for: Normal Color Eye Exam: Positive for: EOMI, PERRL Neck: Positive for: Supple Cardiovascular/Chest: Positive for: Regular Rate, Rhythm. Negative for: Tachycardia Respiratory: Positive for: Normal Breath Sounds. Negative for: Respiratory Distress Gastrointestinal/Abdominal: Positive for: Soft. Negative for: Tenderness Back: Positive for: Normal Inspection Extremity: Positive for: Normal ROM Neurological/Psych: Positive for: Awake, Alert, Normal Tone, Oriented (x 3) - Laboratory Results Result Diagrams: 02/10/19 13:20 02/10/19 13:20 Lab Results: pO2 34 mm/Hg (30-55) 02/10/19 13:40 VBG pH 7.35 (7.32-7.43) 02/10/19 13:40 VBG pCO2 44 mmHg (40-60) 02/10/19 13:40 VBG HCO3 22.8 mmol/L 02/10/19 13:40 VBG Total CO2 25.7 mmol/L (22-28) 02/10/19 13:40 VBG O2 Sat (Calc) 67.4 % (40-65) H 02/10/19 13:40 VBG Base Excess -1.5 mmol/L (0.0-2.0) L 02/10/19 13:40 VBG Potassium 3.6 mmol/L (3.6-5.2) 02/10/19 13:40 Sodium 131.0 mmol/L (132-148) L 02/10/19 13:40 Chloride 99.0 mmol/L (98-107) 02/10/19 13:40 Glucose 135 mg/dL (65-105) H 02/10/19 13:40 Lactate 1.2 mmol/L (0.7-2.1) 02/10/19 13:40 FiO2 21.0 % 02/10/19 13:40 PT 12.0 Seconds (9.8-13.1) 02/10/19 13:20 INR 1.1 02/10/19 13:20 APTT 32.9 Seconds (25.6-37.1) 02/10/19 13:20 Troponin I < 0.0120 ng/mL (0.00-0.120) 02/10/19 13:20 NT-Pro-B Natriuret Pep 23.8 pg/ml (0-900) 02/10/19 13:20 Total Bilirubin 0.7 mg/dl (0.2-1.3) 02/10/19 13:20 AST 27 U/L (14-36) 02/10/19 13:20 ALT 28 U/L (9-52) 02/10/19 13:20 Alkaline Phosphatase 70 U/L (38-126) 02/10/19 13:20 Total Protein 7.6 G/DL (6.3-8.2) 02/10/19 13:20 Albumin 4.4 g/dL (3.5-5.0) 02/10/19 13:20 Globulin 3.2 gm/dL (2.2-3.9) 02/10/19 13:20 Albumin/Globulin Ratio 1.4 (1.0-2.1) 02/10/19 13:20 Urine Color Colorless (YELLOW) 02/10/19 14:25 Urine Clarity Clear (Clear) 02/10/19 14:25 Urine pH 7.0 (5.0-8.0) 02/10/19 14:25 Ur Specific [place] < 1.005 (1.003-1.030) 02/10/19 14:25 Urine Protein Negative mg/dL (NEGATIVE) 02/10/19 14:25 Urine Glucose (UA) Neg mg/dL (NEGATIVE) 02/10/19 14:25 Urine Ketones Negative mg/dL (NEGATIVE) 02/10/19 14:25 Urine Blood Negative (NEGATIVE) 02/10/19 14:25 Urine Nitrate Negative (NEGATIVE) 02/10/19 14:25 Urine Bilirubin Negative (NEGATIVE) 02/10/19 14:25 Urine Urobilinogen 0.2-1.0 mg/dL (0.2-1.0) 02/10/19 14:25 Ur Leukocyte Esterase Neg Jaylene/uL (Negative) 02/10/19 14:25 Urine RBC (Auto) < 1 /hpf (0-3) 02/10/19 14:25 Urine Microscopic WBC < 1 /hpf (0-5) 02/10/19 14:25 Ur Squamous Epith Cells < 1 /hpf (0-5) 02/10/19 14:25 Urine Bacteria Rare (<OCC) 02/10/19 14:25 Medical Decision Making Medical Decision Making: Workup with cardiac labs to determine source of uncontrolled hyperglycemia Patient is compliant with medication as well as diet Plan: -- Labs -- IV Fluids -- Reassessment 1613 Labs reviewed and are unremarkable Patient still reports dizziness, CT head ordered Possible admission. 1739 CT Head FINDINGS: HEMORRHAGE: No intracranial hemorrhage. BRAIN: No mass effect or edema. Estrella-white matter differentiation appears intact. Please note that MRI with diffusion imaging is more sensitive in the detection of acute ischemic event. VENTRICLES: No hydrocephalus. CALVARIUM: Unremarkable. PARANASAL SINUSES: Unremarkable as visualized. No significant inflammatory changes. MASTOID AIR CELLS: Unremarkable as visualized. No inflammatory changes. OTHER FINDINGS: None. IMPRESSION: No acute intracranial pathology identified. Patient informed of imaging and labs findings Stable for discharge home, informed to take medications as prescribed and follow up with galvanometer assembler in 1 week. Return precautions given. ------- Scribe Attestation: Documented by Maggi Donahue acting as a scribe for Tricia Rodriguez MD. Provider Scribe Attestation: All medical record entries made by the Scribe were at my direction and personally dictated by me. I have reviewed the chart and agree that the record accurately reflects my personal performance of the history, physical exam, medical decision making, and the department course for this patient. I have also personally directed, reviewed, and agree with the discharge instructions and disposition. Disposition - Clinical Impression Clinical Impression: Dizziness, Hyperglycemia - Disposition Disposition: Routine/Home Disposition Time: 17:40 Condition: IMPROVED Additional Instructions: Follow up with galvanometer assembler within the next week. Continue to monitor blood sugar levels and take medications as indicated. Instructions: Hyperglycemia, Adult Forms: [employer] (Kyrgyz)
--- NOTE | 2019-02-10 15:38 | CARD ---
APPROVED REPORT Date of service: 02/10/2019 EKG Measurement Heart [id number] [id number] <Conclusion> Normal sinus rhythm Normal ECG
[2019-02-10 16:11] VITALS: RESP 16; O2SAT 100
--- NOTE | 2019-02-10 16:57 | CT ---
Date of service: 02/10/2019 PROCEDURE: CT HEAD WITHOUT CONTRAST. HISTORY: dizziness COMPARISON: Noncontrast head CT performed 09/05/16 TECHNIQUE: Axial computed tomography images were obtained through the head/brain without intravenous contrast. Radiation dose: Total exam DLP = 864.5 mGy-cm. This CT exam was performed using one or more of the following dose reduction techniques: Automated exposure control, adjustment of the mA and/or kV according to patient size, and/or use of iterative reconstruction technique. FINDINGS: HEMORRHAGE: No intracranial hemorrhage. BRAIN: No mass effect or edema. Estrella-white matter differentiation appears intact. Please note that MRI with diffusion imaging is more sensitive in the detection of acute ischemic event. VENTRICLES: No hydrocephalus. CALVARIUM: Unremarkable. PARANASAL SINUSES: Unremarkable as visualized. No significant inflammatory changes. MASTOID AIR CELLS: Unremarkable as visualized. No inflammatory changes. OTHER FINDINGS: None. IMPRESSION: No acute intracranial pathology identified.
[2019-02-10 18:17] VITALS: BP 122/71; PULSE 65; TEMP 98
== END 2019-02-10 18:17 | disposition home or self-care (01) ==
LOC: H.ER 12:39
DX: R42 Dizziness and giddiness (principal); E11.65 Type 2 diabetes mellitus with hyperglycemia; E78.00 Pure hypercholesterolemia, unspecified; I10 Essential (primary) hypertension; Z79.4 Long term (current) use of insulin; Z79.82 Long term (current) use of aspirin; Z86.73 Personal history of transient ischemic attack (TIA), and cerebral infarction without residual deficits; Z88.0 Allergy status to penicillin
CPT/HCPCS: 70450; 71045; 80053; 81003; 82803; 82948; 83880; 84484; 85025; 85610; 85730; 87040; 93005; 96374; 99283; J2405; J7030